=== PATIENT | female | born 1940 | race Caucasian/White ===

== ENCOUNTER 2024-06-13 16:50 | Emergency (ER) | payer OTHER ==
--- NOTE | 2024-06-13 17:34 | RAD REPORT ---
EXAMINATION: CT ABDOMEN AND PELVIS WITHOUT CONTRAST CLINICAL INDICATION: Female, 84 years old.Lower GI bleed;Abd pain TECHNIQUE: CT abdomen and pelvis was performed, without IV contrast, as per department protocol. Axia l, sagittal and coronal reconstructions were obtained. One or more of the following dose reduction techniques were used: Automated exposure control, adjustment of the mA and/or kV according to the pat ient size, and/or iterative reconstruction. Unless otherwise specified, incidental findings do not require dedicated imaging follow-up. [id number]. IV CONTRAST: Not administered. COMPARISON: None FINDINGS: The lack of intravenous contrast limits the sensitivity of this exam for evaluation of solid visceral organs, vascular structures, and retroperitoneum. LOWER CHEST: Small bilateral pleural effusions with probably underlying atelectasis.Moderate cardiome christine. Mild coronary artery calcifications.Moderate hiatal hernia. Aortic valve and mitral annular calcifications. UPPER GI: No significant abnormality. LIVER: No significant focal abnormality. GALLBLADDER/BILE DUCTS: Cholecystectomy. Mild extra-hepatic biliary ductal dilatation is likely relat ed to the post-cholecystectomy state. Consider correlating with LFT's.? PANCREAS: Atrophy but no acute findings. SPLEEN: Unremarkable. ADRENALS: No adrenal masses. KIDNEYS AND URETERS: No hydronephrosis.Limited evaluation for renal lesions in the absence of IV cont rast.No renal calculi. ABDOMINAL AORTA AND OTHER VESSELS: Mild atherosclerotic changes. PERITONEUM: No abnormal free fluid. No free air. LYMPH NODES: No pathologic lymphadenopathy. ABDOMINAL WALL: Small fat containing umbilical hernia. SMALL BOWEL/COLON: Small bowel has normal course and caliber. No colonic wall thickening or pericolon ic inflammatory changes. Moderate diverticulosis without diverticulitis. Moderate formed stool burden. URINARY BLADDER: Underdistended but grossly unremarkable. REPRODUCTIVE ORGANS: No pathologic process. MUSCULOSKELETAL: Lower thoracic and lumbar compression fractures identified. At least 2 of which appe ar subacute including at T11 and L1. The others are probably chronic. ADDITIONAL FINDINGS: None. IMPRESSION: No acute findings within the abdomen or pelvis. Age-indeterminate thoracic and lumbar compression fractures. MRI could better establish acuity if cli nically indicated. Other ancillary findings as noted above.
[2024-06-13 18:17] LABS: Absolute Basophils 0.1 K/uL (0-0.5); Absolute Eosinophils 0.3 K/uL (0-0.5); Absolute Lymphocytes (CBC) 1.3 K/uL (0.7-4.9); Absolute Monocytes 0.9 K/uL (0.1-1.3); Absolute Neutrophil 4.2 K/uL (1.8-8.0); Albumin 2.5 g/dL (3.4-5.0); Albumin/Globulin Ratio 0.7 (1.1-1.8); Anion Gap 9.2 mEq/L (5.0-15.0); Bilirubin Direct 0.2 mg/dL (0-0.2); Bilirubin Indirect, Calculated 0.3 mg/dL (0.2-0.8); Bilirubin Total 0.5 mg/dL (0.2-1.0); Eosinophils % 4.2 % (0-4.4); Globulin 3.7 g/dL (2.3-3.5); Hematocrit 34.8 % (36.0-45.0); Hemoglobin 11.7 g/dL (12.0-15.0); Lymphocytes % 19.5 % (15.3-44.8); MCH 33.4 pg (27.0-35.0); MCHC 33.7 g/dL (32.0-36.0); MCV 99.2 fL (80-100); MPV 7.4 fL (7.6-11.3); Magnesium 2.1 mg/dL (1.6-2.4); Monocytes % 12.8 % (3.3-12.3); Neutrophils % 62.5 % (41.7-73.7); Nucleated Red Blood Cells % 0.1 % (0-0); PT Prothrombin Time 11.5 SECONDS (10-13.0); PTT, Activated Partial Thromb 34.2 SECONDS (27.2-37.4); Platelets 168 thou/uL (152-406); Potassium 3.2 mEq/L (3.5-5.1); Protein, Total 6.2 g/dL (6.4-8.2); Protime INR 1.01; RBC Red Blood Cell Count 3.51 M/uL (3.86-4.86); Red Cell Distribution Width 24.7 % (12.1-15.2); Troponin High Sensitivity 30.5 pg/mL (<58.9)
[2024-06-13 18:18] LABS: Anisocytosis 3+; Blood Morphology Comment NOTED (NOT SEEN); Platelet Estimate ADEQ; White Blood Cell Scan OK (OK)
--- NOTE | 2024-06-13 18:47 | ER ---
Nurse's Notes [facility] Name: Cintia Avitia Age: 84 yrs Sex: Female : 1940 Arrival Date: 06/13/2024 Time: 16:50 Bed 19 [facility] MD: Diagnosis: Rectal bleeding Presentation: 06/13 16:53 Chief complaint: EMS states: has had bloody stool all day, bright red blood, she has hx iw of diverticulitis and hemorrhoids , pt denies abd pain or cramping. 16:53 Coronavirus screen: At this time, the client does not indicate any symptoms associated iw with coronavirus-19. Ebola Screen: No symptoms or risks identified at this time. Initial Sepsis Screen: Does the patient meet any 2 criteria? No. Patient's initial sepsis screen is negative. Does the patient have a suspected source of infection? No. Patient's initial sepsis screen is negative. Risk Assessment: Do you want to hurt yourself or someone else? Patient reports no desire to harm self or others. Onset of symptoms was June 13, 2024. 16:53 Method Of Arrival: EMS: [facility] iw 16:53 Acuity: CHRISTAL 3 iw Historical: - Allergies: 17:01 digoxin; iw 17:01 Epinephrine; iw 17:01 NITROFURAN DERIVATIVES; iw 17:01 Remeron; iw 17:01 Sulfa (Sulfonamide Antibiotics); iw - Home Meds: 17:06 nystatin 100,000 unit/gram Topical powder 2 times per day [Active]; meclizine 12.5 mg iw Oral tablet 2 times per day [Active]; midodrine 10 mg oral tablet 3 times per day [Active]; amiodarone 200 mg oral tablet daily [Active]; pravastatin 40 mg oral tablet every day at bedtime [Active]; metoprolol tartrate 25 mg Oral tablet 2 times per day [Active]; Senna-S 8.6-50 mg oral tablet 2 times per day [Active]; pantoprazole 40 mg oral tablet, delayed release (enteric coated) every morning [Active]; Lokelma 10 gram oral powder in packet daily [Active]; insulin glargine 100 unit/mL Sub-Q solution 10 units daily [Active]; Enulose 10 gram/15 mL oral solution 30 mL 3 times per day [Active]; bisacodyl 10 mg Rectal suppository daily [Active]; diclofenac sodium 1 % topical gel every 8 hours [Active]; - PMHx: 17:01 Hypertensive disorder; Diabetes mellitus; Ileus; back fracture; ESRD; dialysis; iw 17:05 CHF; Atrial fibrillation; iw - PSHx: 17:01 pacemaker; iw - Immunization history:: Adult Immunizations up to date. - Infectious Disease History:: Denies. - Social history:: Smoking status: Patient denies any tobacco usage or history of. Screenin:00 [facility] ED Fall Risk Assessment (Adult) History of falling in the last 3 months, kj2 including since admission No falls in past 3 months (0 pts) Confusion or Disorientation No (0 pts) Intoxicated or Sedated No (0 pts) Impaired Gait No (0 pts) Mobility Assist Device Used No (0 pt) Altered Elimination No (0 pt) Score/Fall Risk Level 0 - 2 = Low Risk Maintained a safe environment, Hourly rounding (assess needs \T\ fall precautionary measures) done. Abuse screen: Denies threats or abuse. Denies injuries from another. Nutritional screening: No deficits noted. Tuberculosis screening: No symptoms or risk factors identified. Assessment: 17:00 General: Appears in no apparent distress. Behavior is calm, cooperative. Pain: Denies kj2 pain. Neuro: Level of Consciousness is awake, alert, obeys commands, Oriented to person, place, time, situation. Cardiovascular: Patient's skin is warm and dry. Respiratory: Airway is patent Respiratory effort is unlabored. GI: No signs and/or symptoms were reported involving the gastrointestinal system. : No signs and/or symptoms were reported regarding the genitourinary system. 17:51 Reassessment: Patient appears in no apparent distress at this time. Patient and/or kj2 family updated on plan of care and expected duration. Pain level reassessed. Patient is alert, oriented x 3, equal unlabored respirations, skin warm/dry/pink. 19:07 Reassessment: Patient appears in no apparent distress at this time. Patient and/or kj2 family updated on plan of care and expected duration. Pain level reassessed. Patient is alert, oriented x 3, equal unlabored respirations, skin warm/dry/pink. 19:10 Reassessment:. kj2 19:53 Reassessment: gave nurse to nurse report to [facility] facility staff nurse, Danie will kj2 call back with an ETA for lease picker transportation of patient. 20:37 Reassessment: Patient appears in no apparent distress at this time. Patient and/or kj2 family updated on plan of care and expected duration. Pain level reassessed. Patient is alert, oriented x 3, equal unlabored respirations, skin warm/dry/pink. 20:37 Reassessment: EMS arrived to transport to facility. kj2 Vital Signs: 16:53 BP 124 / 75; Pulse 57; Resp 16; Temp 97.9; Pulse Ox 94% on R/A; Weight 69.4 kg; Height iw 5 ft. 0 in. ; Pain 0/10; 17:47 BP 133 / 61; Pulse 60; Resp 18; Pulse Ox 95% on R/A; ph 19:09 BP 130 / 62; Pulse 60; Resp 18; Temp 97.9; Pulse Ox 98% on R/A; kj2 16:53 Body Mass Index 29.88 (69.40 kg, 152.4 cm) iw 16:53 Pain Scale: Adult iw ED Course: 16:50 Patient arrived in ED. ty 16:50 Zohaib Blevins MD is Attending Physician. sp3 16:55 Triage completed. jb4 17:00 Patient has correct armband on for positive identification. Bed in low position. Call kj2 light in reach. Provided Education on: call light. 17:04 Arm band placed on. iw 17:22 CT Abd/Pelvis - Without Contrast In Process Unspecified. EDMS 17:45 Funmilayo Lewis, RN is Primary Nurse. kj2 17:50 No provider procedures requiring assistance completed. kj2 17:51 Initial lab(s) drawn, by [facility], sent to lab. T\T\S collected, blood band applied to patient. iw Inserted saline lock: 20 gauge in right antecubital area, using aseptic technique. Blood collected. Flushed with 10 mL NS. 18:16 EKG done, by ED staff, reviewed by Zohaib Blevins MD. zm 19:12 IV discontinued, intact, bleeding controlled, No redness/swelling at site. Pressure kj2 dressing applied. Administered Medications: No medications were administered Medication: 17:50 VIS not applicable for this client. kj2 Outcome: 18:46 Discharge ordered by . sp3 19:11 Discharged to [facility]. Report called to [facility] kj2 19:11 Condition: stable 19:11 Discharge instructions given to patient, Instructed on discharge instructions, follow up and referral plans. Demonstrated understanding of instructions, follow-up care, 21:06 Patient left the ED. kj2 Signatures: Dispatcher [employer] EDJenn Farr RN RN Prema Doan RN RN ph Bryson, James, RN RN [facility] Zohaib Blevins MD MD sp3 Sandy Malone Tylor ty Jordan, Krystal, RN RN kj2 Corrections: (The following items were deleted from the chart) 17: 16:53 Chief complaint: EMS states: has had bloody stool all day, bright red blood, she iw has hx of diverticulitis and hemorrhoids , pt denies abd pain or cramping [facility] 16:53 Coronavirus screen: At this time, the client does not indicate any symptoms iw associated with coronavirus-19. [facility] 16:53 Ebola Screen: No symptoms or risks identified at this time. [facility] 16:53 Risk Assessment: Do you want to hurt yourself or someone else? Patient reports no iw desire to harm self or others. [facility] 16:53 Initial Sepsis Screen: Does the patient meet any 2 criteria? No. Patient's iw initial sepsis screen is negative. Does the patient have a suspected source of infection? No. Patient's initial sepsis screen is negative. [facility] 16:53 Onset of symptoms was June 13, 2024 [facility] 16:53 Method Of Arrival: EMS: [facility] 16:53 Acuity: CHRISTAL 3 [facility] 16:53 BP 124 / 75; Pulse 57bpm; Resp 16bpm; Pulse Ox 94% RA; Temp 97.9F; 69.4 kg; iw Height 5 ft. 0 in.; BMI: 29.8; Pain 0/10, Adult; [facility] 20:39 19:11 Discharged to home via wheelchair, kj2 kj2
--- NOTE | 2024-06-13 18:47 | EDPHYS ---
Physician Documentation [facility] Name: Cintia Avitia Age: 84 yrs Sex: Female : 1940 Arrival Date: 06/13/2024 Time: 16:50 Bed 19 Private MD: ED Physician Zohaib Blevins HPI: 06/13 16:53 This 84 yrs old Female presents to ER via Unassigned with complaints of Rectal Bleeding.sp3 16:53 84-year-old female with history of end-stage renal disease, prior diverticulitis, prior sp3 lower GI bleed, prior hemorrhoids status post 2 surgeries now presents to the ED with recurrent bright red blood mixed with stool over the last 24 hours. Patient is having no pain and denies having any lightheadedness, headache, chest pain, shortness of breath, abdominal pain, vomiting, rash, bleeding anywhere else, or any other signs or symptoms on ROS at this time. Patient is not on any antiplatelet or anticoagulant agents. Last dialysis was today. ROS otherwise negative.. Historical: - Allergies: 17:01 digoxin; iw 17:01 Epinephrine; iw 17:01 NITROFURAN DERIVATIVES; iw 17:01 Remeron; iw 17:01 Sulfa (Sulfonamide Antibiotics); iw - Home Meds: 17:06 nystatin 100,000 unit/gram Topical powder 2 times per day [Active]; meclizine 12.5 mg iw Oral tablet 2 times per day [Active]; midodrine 10 mg oral tablet 3 times per day [Active]; amiodarone 200 mg oral tablet daily [Active]; pravastatin 40 mg oral tablet every day at bedtime [Active]; metoprolol tartrate 25 mg Oral tablet 2 times per day [Active]; Senna-S 8.6-50 mg oral tablet 2 times per day [Active]; pantoprazole 40 mg oral tablet, delayed release (enteric coated) every morning [Active]; Lokelma 10 gram oral powder in packet daily [Active]; insulin glargine 100 unit/mL Sub-Q solution 10 units daily [Active]; Enulose 10 gram/15 mL oral solution 30 mL 3 times per day [Active]; bisacodyl 10 mg Rectal suppository daily [Active]; diclofenac sodium 1 % topical gel every 8 hours [Active]; - PMHx: 17:01 Hypertensive disorder; Diabetes mellitus; Ileus; back fracture; ESRD; dialysis; iw 17:05 CHF; Atrial fibrillation; iw - PSHx: 17:01 pacemaker; iw - Immunization history:: Adult Immunizations up to date. - Infectious Disease History:: Denies. - Social history:: Smoking status: Patient denies any tobacco usage or history of. ROS: 16:54 Constitutional: Negative for fever, chills, and weight loss, Eyes: Negative for injury, sp3 pain, redness, and discharge, ENT: Negative for injury, pain, and discharge, Neck: Negative for injury, pain, and swelling, Cardiovascular: Negative for chest pain, palpitations, and edema, Respiratory: Negative for shortness of breath, cough, wheezing, and pleuritic chest pain, Back: Negative for injury and pain, MS/Extremity: Negative for injury and deformity, Skin: Negative for injury, rash, and discoloration, Neuro: Negative for headache, weakness, numbness, tingling, and seizure, Psych: Negative for depression, anxiety, suicide ideation, homicidal ideation, and hallucinations, Allergy/Immunology: Negative for hives, rash, and allergies, Endocrine: Negative for neck swelling, polydipsia, polyuria, polyphagia, and marked weight changes, Hematologic/Lymphatic: Negative for swollen nodes, abnormal bleeding, and unusual bruising, 16:54 All other systems are negative, Exam: 16:54 Constitutional: This is a well developed, well nourished patient who is awake, alert, sp3 and in no acute distress. Head/Face: Normocephalic, atraumatic. Eyes: Pupils equal round and reactive to light, extra-ocular motions intact. Lids and lashes normal. Conjunctiva and sclera are non-icteric and not injected. Cornea within normal limits. Periorbital areas with no swelling, redness, or edema. Neck: Trachea midline, no thyromegaly or masses palpated, and no cervical lymphadenopathy. Supple, full range of motion without nuchal rigidity, or vertebral point tenderness. No Meningismus. Chest/axilla: Normal chest wall appearance and motion. Nontender with no deformity. No lesions are appreciated. Cardiovascular: Regular rate and rhythm with a normal S1 and S2. No gallops, murmurs, or rubs. Normal PMI, no JVD. No pulse deficits. Respiratory: Lungs have equal breath sounds bilaterally, clear to auscultation and percussion. No rales, rhonchi or wheezes noted. No increased work of breathing, no retractions or nasal flaring. Abdomen/GI: Soft, non-tender, with normal bowel sounds. No distension or tympany. No guarding or rebound. No evidence of tenderness throughout. Back: No spinal tenderness. No costovertebral tenderness. Full range of motion. Skin: Warm, dry with normal turgor. Normal color with no rashes, no lesions, and no evidence of cellulitis. MS/ Extremity: Pulses equal, no cyanosis. Neurovascular intact. Full, normal range of motion. Neuro: Awake and alert, GCS 15, oriented to person, place, time, and situation. Cranial nerves II-XII grossly intact. Motor strength 5/5 in all extremities. Sensory grossly intact. Cerebellar exam normal. Normal gait. Psych: Awake, alert, with orientation to person, place and time. Behavior, mood, and affect are within normal limits. 16:54 Abdomen/GI: Blood present in undergarments and on sheet., 18:15 ECG was reviewed by the Attending Physician. Paced rhythm at 60 bpm sp3 Vital Signs: 16:53 BP 124 / 75; Pulse 57; Resp 16; Temp 97.9; Pulse Ox 94% on R/A; Weight 69.4 kg; Height iw 5 ft. 0 in. ; Pain 0/10; 17:47 BP 133 / 61; Pulse 60; Resp 18; Pulse Ox 95% on R/A; ph 19:09 BP 130 / 62; Pulse 60; Resp 18; Temp 97.9; Pulse Ox 98% on R/A; kj2 16:53 Body Mass Index 29.88 (69.40 kg, 152.4 cm) iw 16:53 Pain Scale: Adult iw MDM: 16:50 Medical Screening Exam initiated sp3 16:55 Data reviewed: vital signs, nurses notes, old medical records, lab test result(s), EKG, sp3 radiologic studies. ED course: 84-year-old female with PMH above now with lower GI bleed/melena. Differential diagnosis includes diverticulitis, hemorrhoidal bleed, other GI bleed, among others. I am at highly suspicious of coagulopathy or any other critical process including sepsis or shock. Vital signs demonstrate normal blood pressure and normal heart rate. Workup will include CT scan of the abdomen pelvis noncontrast, general labs, EKG and general supportive care with further interventions as indicated. Disposition pending workup and patient course.. 18:45 ED course: Patient resting comfortably with normal vital signs. No active bleeding sp3 noted. Hemoglobin 11.7. CT demonstrates no significant abnormality. Patient is not coagulopathic. We will safely discharge patient home to follow-up with her PCP.. 06/13 16:52 Order name: Basic Metabolic Panel; Complete Time: 18:41 sp3 06/13 16:52 Order name: CBC with Diff; Complete Time: 18:41 sp3 06/13 16:52 Order name: LFT's; Complete Time: 18:41 sp3 06/13 16:52 Order name: Magnesium; Complete Time: 18:41 sp3 06/13 16:52 Order name: NT PRO-BNP; Complete Time: 18:41 3 06/13 16:52 Order name: PT-INR; Complete Time: 18:41 sp3 06/13 16:52 Order name: Troponin HS; Complete Time: 18:41 sp3 06/13 16:52 Order name: Ptt, Activated; Complete Time: 18:41 sp3 06/13 16:52 Order name: Type And Screen; Complete Time: 18:59 sp3 06/13 18:19 Order name: CBC Smear Scan; Complete Time: 18:41 EDMS 06/13 19:00 Order name: ABO/RH no charge; Complete Time: 19:01 EDMS 06/13 16:52 Order name: CT Abd/Pelvis - Without Contrast; Complete Time: 17:36 sp3 06/13 16:52 Order name: Cardiac monitoring; Complete Time: 18:20 sp3 06/13 16:52 Order name: EKG - Nurse/Tech; Complete Time: 18:16 sp3 06/13 16:52 Order name: IV Saline Lock; Complete Time: 17:58 sp3 06/13 16:52 Order name: Labs collected and sent; Complete Time: 17:58 3 06/13 16:52 Order name: O2 Per Protocol; Complete Time: 18:22 sp3 06/13 16:52 Order name: O2 Sat Monitoring; Complete Time: 18:20 sp3 06/13 16:52 Order name: NPO; Complete Time: 17:56 sp3 Administered Medications: No medications were administered Disposition Summary: 06/13/24 18:46 Discharge Ordered Notes: Location: Home sp3 Condition: Stable sp3 Diagnosis - Rectal bleeding sp3 Followup: sp3 - With: Private Physician - When: Upon discharge from the Emergency Department - Reason: Continuance of care Discharge Instructions: - Discharge Summary Sheet sp3 - Rectal Bleeding sp3 Forms: - Medication Reconciliation Form sp3 - Antibiotic Education sp3 - Prescription Opioid Use sp3 - Patient Portal Instructions sp3 - Leadership Thank You Letter sp3 - SBAR form kj2 Signatures: Dispatcher [employer] EDJenn Farr RN RN iw Zohaib Blevins MD MD sp3 Corrections: (The following items were deleted from the chart) 16:52 16:52 BASIC METABOLIC PANEL+C.LAB.BRZ ordered. EDMS EDMS 16:52 16:52 CBC+H.LAB.BRZ ordered. EDMS EDMS 16:52 16:52 HEPATIC FUNCTION+C.LAB.BRZ ordered. EDMS EDMS 16:52 16:52 MAGNESIUM+C.LAB.BRZ ordered. EDMS EDMS 16:52 16:52 PROBNP+C.LAB.BRZ ordered. EDMS EDMS 16:52 16:52 PROTIME (+INR)+COAG.LAB.BRZ ordered. EDMS EDMS 16:52 16:52 Troponin High Sensitivity+C.LAB.BRZ ordered. EDMS EDMS 16:52 16:52 PTT, ACTIVATED+COAG.LAB.BRZ ordered. EDMS EDMS 16:52 16:52 TYPE AND SCREEN+BB.LAB.BRZ ordered. EDMS EDMS 16:53 16:53 Abdomen Pelvis Wo Con+CT.RAD.BRZ ordered. EDMS EDMS
[2024-06-14 01:17] VITALS: TEMP 97.9
[2024-06-14 01:20] VITALS: BP 130/62; O2SAT 98
--- NOTE | 2024-06-18 12:17 | EKG ---
Test Date: 2024-06-13 Test Time: 18:13:50 Grader Marker: SIVA MEASUREMENT RESULTS: Intervals: Rate: 60 GA: 206 QRSD: 164 QT: 580 QTc: 580 Fishers: P: GA: 206 QRS: -71 T: 105 INTERPRETIVE STATEMENTS: AV dual-paced rhythm Abnormal ECG No previous ECG available for comparison Electronically Signed On 06-18-24 12:06:28 CDT by Alfredo Barboza
== END 2024-06-13 21:06 | disposition home or self-care (01) ==
LOC: ER 16:50
DX: K62.5 Hemorrhage of anus and rectum (principal); E11.22 Type 2 diabetes mellitus with diabetic chronic kidney disease; I13.2 Hypertensive heart and chronic kidney disease with heart failure and with stage 5 chronic kidney disease, or end stage renal disease; I50.9 Heart failure, unspecified; N18.6 End stage renal disease; Z99.2 Dependence on renal dialysis; Z95.0 Presence of cardiac pacemaker; Z79.4 Long term (current) use of insulin
CPT/HCPCS: 36415; 74176; 80048; 80076; 83735; 83880; 84484; 85025; 85610; 85730; 86850; 86900; 86901; 93005; 99284

== ENCOUNTER 2024-06-27 20:17 | Inpatient (IN) | payer OTHER ==
--- NOTE | 2024-06-27 20:47 | RAD REPORT ---
EXAM: CT brain without contrast HISTORY: Alteration of consciousness/confusion COMPARISON: None TECHNIQUE: Multiple contiguous axial images were obtained and a CT of the brain without contrast. Sagittal and coronal reformats were performed. Automated exposure control, adjustment of the mA and/or kV according to patient size, and/or itera tive reconstruction. Unless otherwise specified, incidental findings do not require dedicated imaging follow-u FINDINGS: An intracranial bleed is not seen Ventricles are normal caliber No extra-axial fluid collection noted 1 cm low-density left basal ganglia. Complete opacification left mastoids. IMPRESSION: Low-density left basal ganglia probably lacunar infarction. The age is indeterminate. MRI may be help ful for further evaluation if clinically indicated. Complete opacification left mastoids may indicate mastoiditis. from the emergency room was notified at 8:42 PM June 27, 2024
--- NOTE | 2024-06-27 20:54 | RAD REPORT ---
EXAMINATION: CTA HEAD CLINICAL INDICATION: Alteration of consciousness/confusion TECHNIQUE: Axial CT images were obtained through the head after 100 cc Isovue-370 intravenous contras t utilizing angiographic protocol with 3D post-processing (maximum intensity projection images, volume rendered images and/or shaded surface rendered images). One or more of the following dose red uction techniques were used: Automated exposure control, adjustment of the mA and/or kV according to patient size, and/or iterative reconstruction. Unless otherwise specified, incidental findings do not require dedicated imaging follow-up. COMPARISON: None FINDINGS: Mild calcified plaque distal internal carotid arteries ,The basilar anterior cerebral, middle cerebral and posterior cerebral arteries do not demonstrate a significant stenosis An aneurysm not noted. No large vessel occlusion IMPRESSION: No acute vascular abnormality displayed
--- NOTE | 2024-06-27 20:56 | RAD REPORT ---
EXAMINATION: Neck Angio CLINICAL INDICATION: Alteration of consciousness/confusion. Neck pain TECHNIQUE: Axial CT images were obtained from the aortic arch to the skull base after intravenous adm inistration of 100 cc Isovue-370 utilizing angiographic protocol. Multiplanar reformats, as well as 3D post-processing (maximum intensity projection images, volume rendered images and/or shaded surface rendered images) were generated and reviewed. One or more of the following dose reduction techniques were used: Automated exposure control, adjustment of the mA and/or kV according to patient size, and/or iterative reconstruction. Unless otherwise specified, incidental findings do not require dedicated imaging follow-up. COMPARISON: No prior exam. FINDINGS: The visualized aortic arch and great vessels do not demonstrate a significant abnormality Mild plaque within the common carotid, internal carotid and external carotid arteries bilaterally. Distal right vertebral artery hypoplastic. Vertebral arteries unremarkable No significant stenosis noted. A dissection is not seen. Moderate right and [id number] left pleural effusions Methods for NASCET criteria: Mild stenosis, 0% to 49%; Moderate stenosis 50% to 69%; Severe stenosis, 70% to 99% IMPRESSION: No acute vascular abnormality displayed
[2024-06-27 20:59] LABS: Absolute Basophils 0.1 K/uL (0-0.5); Absolute Eosinophils 0.2 K/uL (0-0.5); Absolute Lymphocytes (CBC) 1.1 K/uL (0.7-4.9); Absolute Monocytes 0.8 K/uL (0.1-1.3); Basophils % 1.1 % (0-1.3); Eosinophils % 3.8 % (0-4.4); Hematocrit 32.8 % (36.0-45.0); Hemoglobin 11.2 g/dL (12.0-15.0); Lymphocytes % 21.3 % (15.3-44.8); MCH 33.8 pg (27.0-35.0); MCV 99.6 fL (80-100); MPV 8.6 fL (7.6-11.3); Monocytes % 15.1 % (3.3-12.3); Neutrophils % 58.7 % (41.7-73.7); Nucleated Red Blood Cells % 0.3 % (0-0); Platelets 123 thou/uL (152-406); Red Cell Distribution Width 24.9 % (12.1-15.2)
--- NOTE | 2024-06-27 21:04 | RAD REPORT ---
EXAMINATION: CT ABDOMEN AND PELVIS WITHOUT CONTRAST CLINICAL INDICATION: Abdominal pain TECHNIQUE: CT abdomen and pelvis was performed, as per department protocol. IV contrast and oral was not administered.Axial, sagittal and coronal reconstructions were obtained. One or more of the following dose reduction techniques were used: Automated exposure control, adjustment of the mA and/o r kV according to the patient size, and/or iterative reconstruction. Unless otherwise specified, incidental findings do not require dedicated imaging follow-up. [id number]. COMPARISON: May 2024. FINDINGS: The lack of intravenous and oral contrast limits evaluation of solid organs, vessels and bowel. Moderate right and njawt-nv-niiskpek left pleural effusions. Bibasilar atelectasis Ilfvw-na-uxkqzkhy hiatal hernia.. Pancreatic atrophy is present. Cholecystectomy or graph The liver, spleen, , adrenals and kidneys appear grossly normal Diverticula stem from colon without evidence of diverticulitis. Hysterectomy. No adnexal mass. Compression fractures involve T8, T9, T11, L1 and L2 vertebral bodies. They're unchanged from prior e xam. The T11 vertebral compression fracture is moderate to marked. IMPRESSION: Multiple compression fractures involving thoracic and lumbar vertebral bodies. They're unchanged from the prior exam. I suspect they are combination of subacute and chronic. Moderate right and jzpzg-uu-jwefrgpo left pleural effusions
--- NOTE | 2024-06-27 21:19 | RAD REPORT ---
Procedure: Chest Single View HISTORY: Cough COMPARISON: none FINDINGS: Moderate right and zmknk-vk-jgzxncoh left pleural effusions Mild bilateral pulmonary opacities probably pulmonary edema Cardiomegaly Pacemaker leads in place. Central venous catheter with one limb in the SVC and the other the right at rium.
[2024-06-27 21:27] LABS: PT Prothrombin Time 11.2 SECONDS (10-13.0); PTT, Activated Partial Thromb 36.7 SECONDS (27.2-37.4); Protime INR 0.98
[2024-06-27 21:30] LABS: Albumin 2.5 g/dL (3.4-5.0); Albumin/Globulin Ratio 0.7 (1.1-1.8); Anion Gap 9.1 mEq/L (5.0-15.0); Bilirubin Direct 0.3 mg/dL (0-0.2); Bilirubin Indirect, Calculated 0.2 mg/dL (0.2-0.8); Bilirubin Total 0.5 mg/dL (0.2-1.0); Globulin 3.7 g/dL (2.3-3.5); Magnesium 2.3 mg/dL (1.6-2.4); Potassium 3.1 mEq/L (3.5-5.1); Protein, Total 6.2 g/dL (6.4-8.2); Troponin High Sensitivity 21.9 pg/mL (<58.9)
[2024-06-27 21:53] LABS: White Blood Cell Scan OK (OK)
[2024-06-27 22:01] LABS: Platelet Estimate DECR
[2024-06-27 22:03] LABS: Anisocytosis 3+; Blood Morphology Comment NOTED (NOT SEEN); Poikilocytosis 1+; Polychromasia 1+
[2024-06-27 22:04] LABS: Basophilic Stippling 1+; Burr Cells FEW; Ovalocytes SLIGHT
[2024-06-28] MEDS ORDERED: ASPIRIN EC 325 MG TABLET PO ONE (00:25)
--- NOTE | 2024-06-28 01:09 | ER ---
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 VS normal. Patient also c/o generalized weakness. Blood sugar 124. Patient is coming from [facility]. Coronavirus screen: Client denies travel out of the [place] in the last 14 days. Ebola Screen: No symptoms or risks identified at this time. Initial Sepsis Screen: Does the patient meet any 2 criteria? No. Patient's initial sepsis screen is negative. Does the patient have a suspected source of infection? No. Patient's initial sepsis screen is negative. Risk Assessment: Do you want to hurt yourself or someone else? Patient reports no desire to harm self or others. Onset of symptoms was June 27, 2024. 20:19 Method Of Arrival: EMS: [facility] jr13 20:19 Acuity: CHRISTAL 3 jr13 Triage Assessment: 21:12 General: Appears in no apparent distress. comfortable, Behavior is calm, cooperative, jr13 appropriate for age. Pain: Denies pain. Neuro: No deficits noted. Level of Consciousness is Oriented to Legal Support Manager are Speech Pupils are PERRLA, Pupil Size: 3 Intact Reports weakness in Generalized malaise since Yesterday. 21:25 Cardiovascular: Denies chest pain, Capillary refill < 3 seconds Patient's skin is warm jr13 and dry. Rhythm is Respiratory: Airway is patent Respiratory effort is even, unlabored, Respiratory pattern is regular, symmetrical. GI: Abdomen is round non-distended, obese. : No signs and/or symptoms were reported regarding the genitourinary system. Derm: Skin is normal. Musculoskeletal: No deficits noted. Circulation, motion, and sensation intact. Historical: - Allergies: 20:23 Digoxin; jr13 20:23 Epinephrine; jr13 20:23 NITROFURAN DERIVATIVES; jr13 20:23 Sulfa (Sulfonamide Antibiotics); jr13 20:23 Remeron; jr13 - PMHx: 20:23 Atrial fibrillation; back fracture; CHF; diabetes mellitus; Dialysis; ESRD; jr13 Hypertensive disorder; ileus; - PSHx: 20:23 pacemaker; jr13 - Immunization history:: Adult Immunizations up to date, . - Infectious Disease History:: Denies. - Family history:: not pertinent. - Social history:: Smoking status: unknown. Screenin:17 [facility] ED Fall Risk Assessment (Adult) History of falling in the last 3 months, jr13 including since admission Yes- single mechanical fall (1 pt) Confusion or Disorientation No (0 pts) Intoxicated or Sedated No (0 pts) Impaired Gait Yes (1 pt) Mobility Assist Device Used Yes (1 pt) Altered Elimination No (0 pt) Score/Fall Risk Level 3 or more points = High Risk Oriented to surroundings, Maintained a safe environment, Educated pt \T\ family on fall prevention, incl call for assistance when getting out of bed, Implemented a Fall Risk Plan of Care. Abuse screen: Denies threats or abuse. Denies injuries from another. Nutritional screening: No deficits noted. Tuberculosis screening: No symptoms or risk factors identified. Assessment: 20:17 General: See triage assessment. jr13 21:12 Reassessment: Patient and/or family updated on plan of care and expected duration. Pain jr13 level reassessed. Patient is alert, oriented x 3, equal unlabored respirations, skin warm/dry/pink. 22:00 Reassessment: Patient and/or family updated on plan of care and expected duration. Pain jr13 level reassessed. Patient is alert, oriented x 3, equal unlabored respirations, skin warm/dry/pink. 23:00 Reassessment: Patient and/or family updated on plan of care and expected duration. Pain jr13 level reassessed. Patient is alert, oriented x 3, equal unlabored respirations, skin warm/dry/pink. 23:32 General: Son Mr. Avitia can be reached at [phone]. ha1 06/28 00:40 Reassessment: Patient and/or family updated on plan of care and expected duration. Pain ha1 level reassessed. Patient is alert, oriented x 3, equal unlabored respirations, skin warm/dry/pink. Vital Signs: 06/27 20:19 BP 110 / 71; Pulse 59; Resp 17; Temp 97(A); Pulse Ox 100% on 2 lpm NC; Weight 63.5 kg; jr13 Height 5 ft. 2 in. ; 21:12 BP 108 / 52; Pulse 68; Resp 17; Pulse Ox 100% on 2 lpm NC; jr13 22:00 BP 101 / 48; Pulse 60; Resp 16; Pulse Ox 100% on 2 lpm NC; jr13 23:00 BP 101 / 50; Pulse 67; Resp 17; Pulse Ox 100% on 2 lpm NC; jr13 23:45 BP 101 / 50; Pulse 66; Resp 16 S; Pulse Ox 99% on 2 lpm NC; ha1 06/28 00:15 BP 108 / 54; Pulse 60; Resp 16 S; Pulse Ox 100% on R/A; ha1 01:15 BP 101 / 52; Pulse 61; Resp 17; Pulse Ox 100% on 2 lpm NC; ha1 06/27 20:19 Body Mass Index 25.61 (63.50 kg, 157.48 cm) jr13 NIH Stroke Scale Scores: 06/27 21:12 NIHSS Score: 0 jr13 ED Course: 20:17 Arm band placed on right wrist. jr13 20:17 Patient has correct armband on for positive identification. Placed in gown. Bed in low jr13 position. Call light in reach. Side rails up X2. 20:17 Provided Education on: Plan of care. jr13 20:18 Patient arrived in ED. rv1 20:18 Tanmay Robles MD is Attending Physician. rt 20:19 Briseida Villasenor, RN is Primary Nurse. jr13 20:23 Triage completed. jr13 20:25 Sam Avitia, son, would like updates. [phone]. rv1 20:30 No provider procedures requiring assistance completed. Inserted saline lock: 22 gauge jr13 in right antecubital area, using aseptic technique. Blood collected. Flushed with 10 mL NS. 20:35 CT Stroke Brain w/o Contrast In Process Unspecified. EDMS 20:48 CT Head Angio In Process Unspecified. EDMS 20:48 CT Neck Angio In Process Unspecified. EDMS 20:48 CT Abd/Pelvis - Without Contrast In Process Unspecified. EDMS 21:01 EKG done, by ED staff, reviewed by Tanmay Robles MD. jr13 21:08 Stroke CXR 1 View In Process Unspecified. EDMS 0403 01:08 Rachel Caraballo MD is Hospitalizing Provider. rt 01:30 Patient admitted, IV remains in place. ha1 Administered Medications: 00:40 Drug: Aspirin PO 325 mg PO once Route: PO; ha1 01:00 Follow up: Response: No adverse reaction ha1 Medication: 06/27 21:47 VIS not applicable for this client. jr13 Outcome: 06/28 01:09 Decision to Hospitalize by Provider. rt 01:30 Condition: stable ha1 01:30 Admitted to ER Hold. Please see [facility] for further documentation. ha1 01:30 Instructed on the need for admit, 12:54 Patient left the ED. ll1 NIH Stroke Scale - NIH Stroke Score Date: 06/27/2024 Time: 21:12 Total Score = 0 10. Dysarthria (speech clarity - read or repeat words) - 0(Normal) 11. Extinction and Inattention (visual/tactile/auditory/spatial/personal) - 0(No abnormality) 1a. Level of Consciousness (LOC) - 0(Alert) 1b. Level of Consciousness (LOC) (Month \T\ Age) - 0(Both) 1c. LOC Commands (Open \T\ Closes Eyes/Trim Installer) - 0(Both) 2. Best Gaze (Lateral Gaze Paresis) - 0(Normal) 3. Visual Field Loss - 0(No visual loss) 4. Facial Palsy - 0(Normal) 5a. Left Arm: Motor (10-second hold) - 0(No drift) 5b. Right Arm: Motor (10-second hold) - 0(No drift) 6a. Left Leg: Motor (5-second hold - always test supine) - 0(No drift) 6b. Right Leg: Motor (5-second hold - always test supine) - 0(No drift) 7. Limb Ataxia (finger/nose \T\ heel/arellano - test with eyes open) - 0(Absent) 8. Sensory Loss (pinprick arms/legs/face) - 0(Normal) 9. Best Language: Aphasia (description/naming/reading) - 0(No aphasia) Initials: jr13 Signatures: Dispatcher [employer] [facility] Carir Walker RN RN 1 Chhaya Wilson RN RN 1 Tanmay Robles MD MD rt Domi Flaherty rv1 Briseida Villasenor, RN RN jr13 Corrections: (The following items were deleted from the chart) 06/27 21:27 21:12 Neuro: No deficits noted. Level of Consciousness is Oriented to Legal Support Manager are jr13 Speech Pupils are PERRLA, Pupil Size: 3 Intact Reports weakness in Generalized malaise since Yesterday jr13 21:43 21:42 General: See triage assessment. jr13 jr13 21:44 21:10 Reassessment: Patient and/or family updated on plan of care and expected jr13 duration. Pain level reassessed. Patient is alert, oriented x 3, equal unlabored respirations, skin warm/dry/pink. jr13
--- NOTE | 2024-06-28 01:09 | EDPHYS ---
Physician Documentation [facility] Name: Cintia Avitia Age: 84 yrs Sex: Female : 1940 Arrival Date: 06/27/2024 Time: 20:17 Bed 14 Private MD: ED Physician Tanmay Robles HPI: 06/27 20:27 This 84 yrs old Female presents to ER via EMS with complaints of Altered Mental Status. rt 20:27 Patient with history of ESRD presents to the ED with reported altered mental status at rt usp. EMS estimates that it was about 5:00, ever, they cannot down exactly last seen normal. States that they ran the patient before, she is significantly withdrawn compared to previous. She is able to state that she feels weak and has been having abdominal pain and constipation. Denies other specific symptoms at this time, symptoms are moderate in severity, no other aggravating or alleviating factors.. Historical: - Allergies: 20:23 Digoxin; jr13 20:23 Epinephrine; jr13 20:23 NITROFURAN DERIVATIVES; jr13 20:23 Sulfa (Sulfonamide Antibiotics); jr13 20:23 Remeron; jr13 - PMHx: 20:23 Atrial fibrillation; back fracture; CHF; diabetes mellitus; Dialysis; ESRD; jr13 Hypertensive disorder; ileus; - PSHx: 20:23 pacemaker; jr13 - Immunization history:: Adult Immunizations up to date, . - Infectious Disease History:: Denies. - Family history:: not pertinent. - Social history:: Smoking status: unknown. ROS: 20:27 Cardiovascular: Negative for chest pain, palpitations, and edema, Respiratory: Negative rt for shortness of breath, cough, wheezing, and pleuritic chest pain, MS/Extremity: Negative for injury and deformity, Skin: Negative for injury, rash, and discoloration, 20:27 Abdomen/GI: Positive for abdominal pain, constipation, 20:27 Neuro: Positive for altered mental status, weakness, Exam: 20:27 Constitutional: This is a well developed, well nourished patient who is awake, alert, rt and in no acute distress. Chest/axilla: Normal chest wall appearance and motion. Nontender with no deformity. No lesions are appreciated. Cardiovascular: Regular rate and rhythm with a normal S1 and S2. No gallops, murmurs, or rubs. Normal PMI, no JVD. No pulse deficits. Respiratory: Lungs have equal breath sounds bilaterally, clear to auscultation and percussion. No rales, rhonchi or wheezes noted. No increased work of breathing, no retractions or nasal flaring. Skin: Warm, dry with normal turgor. Normal color with no rashes, no lesions, and no evidence of cellulitis. 20:27 Eyes: Extraocular muscles intact, no visual field deficits. 20:27 ENT: Dry mucous membranes. 20:27 Abdomen/GI: Mild tenderness diffusely without, distention, 20:27 Neuro: No aphasia or dysarthria noted, follows commands appropriately. Strength, sensation intact upper lower extremities, no cranial nerve deficits, 22:00 ECG was reviewed by the Attending Physician. rt Vital Signs: 20:19 BP 110 / 71; Pulse 59; Resp 17; Temp 97(A); Pulse Ox 100% on 2 lpm NC; Weight 63.5 kg; [facility] Height 5 ft. 2 in. ; 21:12 BP 108 / 52; Pulse 68; Resp 17; Pulse Ox 100% on 2 lpm NC; [facility] 22:00 BP 101 / 48; Pulse 60; Resp 16; Pulse Ox 100% on 2 lpm NC; [facility] 23:00 BP 101 / 50; Pulse 67; Resp 17; Pulse Ox 100% on 2 lpm NC; [facility] 23:45 BP 101 / 50; Pulse 66; Resp 16 S; Pulse Ox 99% on 2 lpm NC; 1 06/28 00:15 BP 108 / 54; Pulse 60; Resp 16 S; Pulse Ox 100% on R/A; ha1 01:15 BP 101 / 52; Pulse 61; Resp 17; Pulse Ox 100% on 2 lpm NC; ha1 06/27 20:19 Body Mass Index 25.61 (63.50 kg, 157.48 cm) [facility] NIH Stroke Scale Scores: 06/27 21:12 NIHSS Score: 0 [facility] MDM: 20:18 Medical Screening Exam initiated rt 06/28 02:04 Differential Diagnosis: CVA, volume depletion, electrolyte disturbance, dysrhythmia. rt Data reviewed: vital signs, nurses notes, lab test result(s), EKG, radiologic studies. Consideration of Admission/Observation Patient was admitted/placed on observation. Management of patient was discussed with the following: Hospitalist: Agrees to admit. I considered the following discharge prescriptions or medication management in the emergency department Medications were administered in the Emergency Department. See MAR. Independent interpretation of the following test(s) in the Emergency Department CT Scan: My interpretation is No intracranial hemorrhage seen on my interpretation of CT scan images. Care significantly affected by the following chronic conditions: Atrial fibrillation. Counseling: I had a detailed discussion with the patient and/or guardian regarding the historical points, exam findings, and any diagnostic results supporting the discharge/admit diagnosis, lab results, radiology results, the need for further work-up and treatment in the hospital. Response to treatment: the patient's symptoms have mildly improved after treatment. ED course: Difficult to ascertain true last seen normal, therefore, thrombolytics are contraindicated. 06/27 20:19 Order name: Basic Metabolic Panel; Complete Time: 21:34 rt 06/27 20:19 Order name: CBC with Diff; Complete Time: 22:07 rt 06/27 20:19 Order name: Hepatic Function; Complete Time: 21:34 rt 06/27 20:19 Order name: High Sensitivity Troponin; Complete Time: 21:34 rt 06/27 20:19 Order name: Magnesium; Complete Time: 21:34 rt 06/27 20:19 Order name: Protime (+inr); Complete Time: 21:34 rt 06/27 20:19 Order name: Ptt, Activated; Complete Time: 21:34 rt 06/27 21:00 Order name: Glucose, Ancillary Testing; Complete Time: 21:20 EDMS 06/27 21:53 Order name: CBC Smear Scan; Complete Time: 22:07 EDMS 06/28 01:46 Order name: Lactate w/ 2H reflex if indic. EDMS 06/28 01:46 Order name: Magnesium EDMS 06/28 01:46 Order name: Thyroid Stimulating Hormone EDMS 06/28 01:46 Order name: Urinalysis w/ reflexes EDMS 06/28 01:46 Order name: CBC with Automated Diff EDMS 06/28 01:47 Order name: CBC with Automated Diff EDMS 06/28 01:47 Order name: Comprehensive Metabolic Panel EDMS 06/28 01:47 Order name: Comprehensive Metabolic Panel EDMS 06/28 04:42 Order name: Lactate w/ 2H reflex if indic. EDMS 06/28 04:42 Order name: CBC with Automated Diff EDMS 06/28 12:34 Order name: Uric Acid EDMS 06/28 12:34 Order name: NT PRO-BNP EDMS 06/27 20:19 Order name: CT Head Angio; Complete Time: 21:20 rt 06/27 20:19 Order name: CT Neck Angio; Complete Time: 21:20 rt 06/27 20:19 Order name: CT Stroke Brain w/o Contrast; Complete Time: 21:20 rt 06/27 20:19 Order name: Stroke CXR 1 View; Complete Time: 21:20 rt 06/27 20:19 Order name: CT Abd/Pelvis - Without Contrast; Complete Time: 21:20 rt 06/28 01:46 Order name: CONS Physician Consult EDMS 06/27 20:19 Order name: Accucheck; Complete Time: 21:06 rt 06/27 20:19 Order name: Cardiac monitoring; Complete Time: 21:06 rt 06/27 20:19 Order name: EKG - Nurse/Tech; Complete Time: 21:06 rt 06/27 20:19 Order name: IV Saline Lock; Complete Time: 21:06 rt 06/27 20:19 Order name: Labs collected and sent; Complete Time: 21:06 rt 06/27 20:19 Order name: NPO; Complete Time: 21:06 rt 06/27 20:19 Order name: O2 Per Protocol; Complete Time: 21:06 rt 06/27 20:19 Order name: O2 Sat Monitoring; Complete Time: 21:06 rt 06/27 20:19 Order name: Stroke Swallow Screen; Complete Time: 21:29 rt EC/02 22:00 Rate is 64 beats/min. Rhythm is regular, Paced with Occasional PVCs. QRS Collins is rt Normal. OH interval is normal. No Q waves. 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 Dysarthria (speech clarity - read or repeat words) - 0(Normal) 11. Extinction and Inattention (visual/tactile/auditory/spatial/personal) - 0(No abnormality) 1a. Level of Consciousness (LOC) - 0(Alert) 1b. Level of Consciousness (LOC) (Month \T\ Age) - 0(Both) 1c. LOC Commands (Open \T\ Closes Eyes/Tmd Teacher) - 0(Both) 2. Best Gaze (Lateral Gaze Paresis) - 0(Normal) 3. Visual Field Loss - 0(No visual loss) 4. Facial Palsy - 0(Normal) 5a. Left Arm: Motor (10-second hold) - 0(No drift) 5b. Right Arm: Motor (10-second hold) - 0(No drift) 6a. Left Leg: Motor (5-second hold - always test supine) - 0(No drift) 6b. Right Leg: Motor (5-second hold - always test supine) - 0(No drift) 7. Limb Ataxia (finger/nose \T\ heel/arellano - test with eyes open) - 0(Absent) 8. Sensory Loss (pinprick arms/legs/face) - 0(Normal) 9. Best Language: Aphasia (description/naming/reading) - 0(No aphasia) Initials: jr13 Signatures: Dispatcher [employer] [facility] Chhaya Wilson RN RN ha1 Tanmay Robles MD MD rt Domi Flaherty rv1 Kalyn Wang bc6 Briseida Villasenor RN RN jr13 Corrections: (The following items were deleted from the chart) 06/27 20:20 20:20 Head Angio+CT.RAD.BRZ ordered. EDMS EDMS 20:20 20:20 Neck Angio+CT.RAD.BRZ ordered. EDMS EDMS 20:20 20:20 CT-STROKE BRAIN W/O CONTRAST+CT.RAD.BRZ ordered. EDMS EDMS 20:20 20:20 Chest Single View+RAD.RAD.BRZ ordered. EDMS EDMS 20:20 20:20 Abdomen Pelvis Wo Con+CT.RAD.BRZ ordered. EDMS EDMS 06/28 01:20 01:09 Telemetry/MedSurg (observation) rt rv1 01:20 01:09 rt rv1 03:43 03:43 BLOOD CULTURE*+BA.LAB.BRZ ordered. EDMS EDMS 12:02 01:20 [facility] ER HOLD rv1 bc6 12:02 01:20 ERHOLD- rv1 bc6
[2024-06-28] MEDS ORDERED: ONDANSETRON 4 MG/2 ML VIAL IV PRN (01:40)
--- NOTE | 2024-06-28 01:51 | P.HP ---
Patient History Date of Service: 06/28/24 Reason for admission: Acute metabolic encephalopathy History of Present Illness: 84-year-old female with a past medical history of ESRD, CHF, diabetes, compression fracture, atrial fibrillation presenting with altered mental status from her nursing earlier today. She is arousable and is able to answer questions on my exam. She states her stomach was hurting earlier. She states she felt better after she had 2 laxatives. She denies fevers and chills. In addition she fractured her back several months ago. She denies any acute complaints at this time. Review of Systems 10-point ROS is otherwise unremarkable General: As per HPI Physical Examination - Physical Exam General: Alert, In no apparent distress HEENT: Atraumatic, Normocephalic Neck: Supple Respiratory: Clear to auscultation bilaterally Cardiovascular: Other (Central line /pacemaker), Edema Capillary refill: <2 Seconds Gastrointestinal: Normal bowel sounds Musculoskeletal: No clubbing Integumentary: No rashes Lymphatics: No axilla or inguinal lymphadenopathy - Studies Laboratory Data (last 24 hrs) 06/27/24 06/27/24 06/27/24 20:44 20:44 20:44 WBC 5.10 Hgb 11.2 L Hct 32.8 L Plt Count 123 L PT 11.2 INR 0.98 APTT 36.7 Sodium 137 Potassium 3.1 L BUN 16 Creatinine 2.57 H Glucose 137 H Magnesium 2.3 Total Bilirubin 0.5 AST 26 ALT 22 Alkaline Phosphatase 154 H Assessment and Plan - Plan Acute metabolic encephalopathy Cerebral infarction CHF ESRD Diabetes melitis Hypertension Atrial fibrillation Thrombocytopenia Hypokalemia Dosed with aspirin in the ED Imaging reviewed, basal ganglia infarct age undetermined PT/OT/speech therapy consult in the a.m. Procalcitonin pending Replace potassium Consult nephrology for dialysis Obtain TSH, urinalysis, lactic acid DVT prophylaxis with SCDs - Advance Directives Does patient have a Living Will: No Does patient have a Durable POA for Healthcare: No
[2024-06-28] MEDS ORDERED: NA CHLORIDE 0.9% 1,000 ML ONE ×2 (02:39→07:40)
[2024-06-28] MEDS: NA CHLORIDE 0.9% 1,000 ML IV SCH (03:35)
[2024-06-28 04:35] LABS: Absolute Basophils 0.1 K/uL (0-0.5); Absolute Eosinophils 0.2 K/uL (0-0.5); Absolute Lymphocytes (CBC) 1.1 K/uL (0.7-4.9); Absolute Monocytes 0.9 K/uL (0.1-1.3); Absolute Neutrophil 2.8 K/uL (1.8-8.0); Basophils % 1.1 % (0-1.3); Eosinophils % 3.4 % (0-4.4); Hematocrit 30.5 % (36.0-45.0); Hemoglobin 10.3 g/dL (12.0-15.0); Lymphocytes % 22.7 % (15.3-44.8); MCHC 33.7 g/dL (32.0-36.0); MCV 100.8 fL (80-100); MPV 8.8 fL (7.6-11.3); Monocytes % 16.8 % (3.3-12.3); Nucleated Red Blood Cells % 0.3 % (0-0); Platelets 114 thou/uL (152-406); RBC Red Blood Cell Count 3.03 M/uL (3.86-4.86)
[2024-06-28 04:42] LABS: Red Cell Distribution Width 25.1 % (12.1-15.2)
[2024-06-28 04:49] LABS: Magnesium 2.1 mg/dL (1.6-2.4); Thyroid Stimulating Hormone 0.878 uIU/mL (0.358-3.740)
[2024-06-28] MEDS: CEFTRIAXONE 1,000 MG in NA CHLORIDE 0.9% 50 ML IVPB SCH (05:39)
[2024-06-28] MEDS ORDERED: ALBUMIN HUMAN 25% 100 ML IV ONE (05:46)
[2024-06-28] MEDS ORDERED: CEFTRIAXONE 1000 MG/VIAL ONE ×2 (05:46→09:57)
[2024-06-28] MEDS: ALBUMIN HUMAN 25% 100 ML IV ONE (06:00)
[2024-06-28] MEDS ORDERED: NOREPINEPHRINE BITARTRATE/D5W 4 MG/250 ML BAG IV ONE (06:42)
[2024-06-28] MEDS: NOREPINEPHRINE 4 MG in D5W 250 ML IV SCH (06:45)
[2024-06-28] MEDS ORDERED: NA CHLORIDE 0.9% 50 ML ONE (09:58)
--- NOTE | 2024-06-28 10:25 | P.CNS ---
Date of Consult: 06/28/24 Reason for Consult: ESRD Requesting Physician: pérez cabrera Chief Complaint: Acute metabolic encephalopathy History of Present Illness: 84-year-old female with a past medical history of ESRD, CHF, diabetes, compression fracture, atrial fibrillation presenting with altered mental status from her nursing earlier today. She is arousable and is able to answer questions on my exam. She states her stomach was hurting earlier. She states she felt better after she had 2 laxatives. She denies fevers and chills. In addition she fractured her back several months ago. She denies any acute complaints at this time. 20:27 This 84 yrs old Female presents to ER via EMS with complaints of Altered Mental Status. rt 20:27 Patient with history of ESRD presents to the ED with reported altered mental status at [facility]. EMS estimates that it was about 5:00, ever, they cannot down exactly last seen normal. States that they ran the patient before, she is significantly withdrawn compared to previous. She is able to state that she feels weak and has been having abdominal pain and constipation. Denies other specific symptoms at this time, symptoms are moderate in severity, no other aggravating or alleviating factors.. Allergies digoxin Allergy (Verified 06/28/24 03:49) Hives epinephrine Allergy (Verified 06/28/24 03:49) Shortness of breath Nitrofuran Analogues Allergy (Verified 06/28/24 03:49) Hives/Rash Sulfa (Sulfonamide Antibiotics) Allergy (Verified 06/28/24 03:49) Hives/Rash Home medications list reviewed: Yes Home Medications: Acetaminophen [Pain Relief] 500 mg PO BID PRN 06/28/24 Calcium Carbonate 1,000 mg PO TID 06/28/24 Cyclobenzaprine HCl 5 mg PO BID 06/28/24 Diclofenac Epolamine [Flector] 1 each TD TID 06/28/24 Lactulose [Enulose] 30 ml PO TID 06/28/24 Metoprolol Tartrate 12.5 mg PO BID 06/28/24 Midodrine HCl 10 mg PO TID 06/28/24 Pravastatin Sodium 40 mg PO BEDTIME 06/28/24 - Past Medical/Surgical History -: Hx SHANNON/ ESRD on HD -: CHF -: HLD -: Hypotension -: Tunneled CVC Review of Systems 10-point ROS is otherwise unremarkable General: Weakness, Malaise Neurological: Confusion Physical Examination Temp Pulse Resp BP Pulse Ox 98 F 62 16 109/60 96 06/28/24 09:15 06/28/24 09:15 06/28/24 09:15 06/28/24 09:15 06/28/24 09:15 General: Cooperative, Mild distress HEENT: Atraumatic Neck: Supple Respiratory: Normal air movement, Diminished Cardiovascular: Regular rate/rhythm, Edema (Hip) Gastrointestinal: Soft and benign, Non-distended, Tenderness Musculoskeletal: No clubbing, No contractures Integumentary: No rashes Neurological: Normal speech Laboratory Data (last 24 hrs) 06/27/24 06/27/24 06/27/24 20:44 20:44 20:44 WBC 5.10 Hgb 11.2 L Hct 32.8 L Plt Count 123 L PT 11.2 INR 0.98 APTT 36.7 Sodium 137 Potassium 3.1 L BUN 16 Creatinine 2.57 H Glucose 137 H Magnesium 2.3 Total Bilirubin 0.5 AST 26 ALT 22 Alkaline Phosphatase 154 H Imagings Data: Procedure: Chest Single View HISTORY: Cough COMPARISON: none FINDINGS: Moderate right and pfgew-ke-cbwmigtf left pleural effusions Mild bilateral pulmonary opacities probably pulmonary edema Cardiomegaly Pacemaker leads in place. Central venous catheter with one limb in the SVC and the other the right atrium. EXAMINATION: CT ABDOMEN AND PELVIS WITHOUT CONTRAST CLINICAL INDICATION: Abdominal pain TECHNIQUE: CT abdomen and pelvis was performed, as per department protocol. IV contrast and oral was not administered.Axial, sagittal and coronal reconstructions were obtained. One or more of the following dose reduction techniques were used: Automated exposure control, adjustment of the mA and/or kV according to the patient size, and/or iterative reconstruction. Unless otherwise specified, incidental findings do not require dedicated imaging follow-up. [id number]. COMPARISON: May 2024. FINDINGS: The lack of intravenous and oral contrast limits evaluation of solid organs, vessels and bowel. Moderate right and sqczd-cc-lxalgmxb left pleural effusions. Bibasilar atelectasis Stoef-qx-dbywpwlr hiatal hernia.. Pancreatic atrophy is present. Cholecystectomy or graph The liver, spleen, , adrenals and kidneys appear grossly normal Diverticula stem from colon without evidence of diverticulitis. Hysterectomy. No adnexal mass. Compression fractures involve T8, T9, T11, L1 and L2 vertebral bodies. They're unchanged from prior exam. The T11 vertebral compression fracture is moderate to marked. IMPRESSION: Multiple compression fractures involving thoracic and lumbar vertebral bodies. They're unchanged from the prior exam. I suspect they are combination of subacute and chronic. Moderate right and clxqs-kt-cknluoby left pleural effusions Conclusions/Impression: ESRD on HD -No NSAIDs -HD held today due to hypotension; will reassess HD as needed Hypokalemia -Replete as ordered Acute on Chronic Hypotension -Restart Midodrine -Continue Levophed and wean as tolerated Diastolic CHF, chronic -Daily weight -Hold IVF at this time DM II -RISS prn Hypoalbuminemia -Albumin IV as ordered Acute Metabolic Encephalopathy -Continue supportive care Case reviewed with Dr. Carbera Thank you kindly for the consultation Patient care 40min
[2024-06-28 12:34] LABS: Uric Acid 2.4 mg/dL (2.6-6.0)
--- NOTE | 2024-06-28 16:30 | P.PN ---
Subjective Date of Service: 06/28/24 Chief Complaint: Acute metabolic encephalopathy Physical Examination - Vital Signs Temperature: 98 F Blood Pressure: 111/51 Pulse: 60 Respirations: 20 Pulse Ox (%): 95 - Studies Laboratory Data (last 24 hrs) 06/28/24 06/28/24 06/28/24 03:50 03:50 03:50 WBC 5.10 Hgb 10.3 L D Hct 30.5 L Plt Count 114 L PT INR APTT Sodium Potassium BUN Creatinine Glucose Uric Acid 2.4 L Magnesium 2.1 Total Bilirubin AST ALT Alkaline Phosphatase 06/27/24 06/27/24 06/27/24 20:44 20:44 20:44 WBC 5.10 Hgb 11.2 L Hct 32.8 L Plt Count 123 L PT 11.2 INR 0.98 APTT 36.7 Sodium 137 Potassium 3.1 L BUN 16 Creatinine 2.57 H Glucose 137 H Uric Acid Magnesium 2.3 Total Bilirubin 0.5 AST 26 ALT 22 Alkaline Phosphatase 154 H Assessment And Plan - Plan Physical examination General: Alert and oriented x 2, NAD, HEENT: Conjunctiva not pale, anicteric sclera Neck: Supple, no elevated JVD Heart: Heart sounds 1 and 2 normal, regular rhythm, normal rate, no pedal edema Lungs: Clear to auscultation bilaterally, adequate breath sounds bilaterally, no rhonchi or crackles. Abdomen: Soft, nondistended, nontender, normal bowel sounds. Extremities: No tenderness, no deformity Skin: Normal skin turgor, no rash, no nodules or ulcers, left chest dialysis blood-looks clean no discharge. Neuro: No focal motor deficit. Normal speech. Psychiatry: Normal mood, no agitation. Diagnosis Acute metabolic encephalopathy Cerebral infarction CHF ESRD Diabetes melitis Hypertension Atrial fibrillation Thrombocytopenia Hypokalemia Acute metabolic encephalopathy Altered mental status significantly improved. CT head showing basal ganglia infarct-undetermined age. Continue aspirin Obtain MRI of the brain Check lipid profile PT OT consult Patient with end-stage renal disease on hemodialysis and low BP No response identified bacteremia given altered mental status. IV NS 1 L in the ED. patient's chest x-ray so additionally mild pulm edema and bilateral pleural effusions. Started on Levophed drip in the ED and transferred to the ICU Follow blood cultures. Obtain procalcitonin End-stage renal disease on hemodialysis Dr. Riggs input appreciated. Hemodialysis per nephrology. Chronic atrial fibrillation Hypertension Atrial fibrillation is rate controlled. Hold metoprolol Patient is not on anticoagulation. Diabetes mellitus type 2 Blood sugar readings within normal range. Monitor. DVT prophylaxis with SCDs Advanced directive: Full code.
[2024-06-28] MEDS: VANCOMYCIN 1.5 GM in NA CHLORIDE 0.9% 500 ML IVPB ONE (18:14)
[2024-06-28] MEDS: HYDROCODONE/APAP 5/325 MG TAB PO PRN (20:14)
[2024-06-29 06:05] LABS: Albumin 2.7 g/dL (3.4-5.0); Albumin/Globulin Ratio 0.8 (1.1-1.8); Anion Gap 11.3 mEq/L (5.0-15.0); Bilirubin Total 0.4 mg/dL (0.2-1.0); Globulin 3.6 g/dL (2.3-3.5); Phosphorus 5.1 mg/dL (2.5-4.9); Potassium 3.3 mEq/L (3.5-5.1); Protein, Total 6.3 g/dL (6.4-8.2); Uric Acid 3.2 mg/dL (2.6-6.0)
[2024-06-29 06:27] LABS: Magnesium 2.1 mg/dL (1.6-2.4)
[2024-06-29 06:52] LABS: Hepatitis B Core Ab, Total Nonreactive (Nonreactive); Hepatitis B Surface Ab - Quant 207.02 mIU/mL (<8.0); Hepatitis B surface AG Interp. Nonreactive (Nonreactive)
[2024-06-29 06:53] LABS: HBsAG Nonreactive Report Report
[2024-06-29] MEDS: MIDODRINE HCL 5 MG TABLET PO SCH ×2 (07:00→14:02)
[2024-06-29 07:02] LABS: Absolute Basophils 0.1 K/uL (0-0.5); Absolute Eosinophils 0.2 K/uL (0-0.5); Absolute Lymphocytes (CBC) 0.9 K/uL (0.7-4.9); Absolute Monocytes 1.1 K/uL (0.1-1.3); Absolute Neutrophil 6.4 K/uL (1.8-8.0); Basophils % 0.8 % (0-1.3); Eosinophils % 2.1 % (0-4.4); Hematocrit 31.5 % (36.0-45.0); Hemoglobin 10.6 g/dL (12.0-15.0); Lymphocytes % 10.1 % (15.3-44.8); MCH 34.1 pg (27.0-35.0); MCHC 33.6 g/dL (32.0-36.0); MCV 101.8 fL (80-100); MPV 8.8 fL (7.6-11.3); Monocytes % 12.8 % (3.3-12.3); Neutrophils % 74.2 % (41.7-73.7); Nucleated Red Blood Cells % 0.2 % (0-0); Platelets 120 thou/uL (152-406); Red Cell Distribution Width 24.9 % (12.1-15.2)
[2024-06-29] MEDS ORDERED: Mupirocin NASAL 2 APPL/1 GM TUBE NAS SCH (09:00)
[2024-06-29] MEDS: NA CHLORIDE 0.9% 50 ML ONE (09:04)
--- NOTE | 2024-06-29 12:02 | P.PN ---
Nephrology (S) Remains in the ICU, remains on low dose pressor support, MAP > 70 when seen, lethargic but awakens easily, responds briefly but not fully recovered to baseline. No other acute events or complaints noted (O) Vitals reviewed in the EMR General: Elderly, pale, NAD HEENT: Atraumatic, sclera anicteric, on LFNC Neck: Supple, Lt IJ TDC, exit site c/d Respiratory: Normal air movement, Diminished at bases b/l Cardiovascular: Regular rate/rhythm mostly Gastrointestinal: Soft and benign, Non-distended, NT Musculoskeletal: No contractures, no sig peripheral edema Integumentary: No rashes noted Neurological: Lethargic but awakens easily, responds briefly, no tremors or myclonus noted Laboratory Data (last 24 hrs) Reviewed in the EMR Procedure: Chest Single View HISTORY: Cough COMPARISON: none FINDINGS: Moderate right and fyfea-fa-uuetlfqs left pleural effusions Mild bilateral pulmonary opacities probably pulmonary edema Cardiomegaly Pacemaker leads in place. Central venous catheter with one limb in the SVC and the other the right atrium. EXAMINATION: CT ABDOMEN AND PELVIS WITHOUT CONTRAST CLINICAL INDICATION: Abdominal pain TECHNIQUE: CT abdomen and pelvis was performed, as per department protocol. IV contrast and oral was not administered.Axial, sagittal and coronal reconstructions were obtained. One or more of the following dose reduction techniques were used: Automated exposure control, adjustment of the mA and/or kV according to the patient size, and/or iterative reconstruction. Unless otherwise specified, incidental findings do not require dedicated imaging follow-up. [id number]. COMPARISON: May 2024. FINDINGS: The lack of intravenous and oral contrast limits evaluation of solid organs, vessels and bowel. Moderate right and gdhep-gz-ualkbjye left pleural effusions. Bibasilar atelectasis Eyhds-xi-nojxevei hiatal hernia.. Pancreatic atrophy is present. Cholecystectomy or graph The liver, spleen, , adrenals and kidneys appear grossly normal Diverticula stem from colon without evidence of diverticulitis. Hysterectomy. No adnexal mass. Compression fractures involve T8, T9, T11, L1 and L2 vertebral bodies. They're unchanged from prior exam. The T11 vertebral compression fracture is moderate to marked. IMPRESSION: Multiple compression fractures involving thoracic and lumbar vertebral bodies. They're unchanged from the prior exam. I suspect they are combination of subacute and chronic. Moderate right and dkgjt-gy-pdlsklek left pleural effusions Conclusions/Impression: Dialysis dependent renal failure, ESRD, transferred to our local [facility] unit in early May -Last OP HD Tues, metab profile with missed HD acceptable, will plan for HD tmrw AM Hypotension, unspecified -No clear infectious focus, BCx neg -Wean off low dose pressor support, restart Midodrine, will employ Albumin support with HD tmrw -No further intravascular vol challenge needed currently Diastolic CHF, chronic. Pleural effusions NOS -Monitor closely, UF on HD tmrw as tolerated AMS, unspecified. Possible CVA, possible Lt basal ganglia, unknown duration -Further w/u, management per IM
--- NOTE | 2024-06-29 12:56 | P.PN ---
Subjective Date of Service: 06/29/24 Chief Complaint: Acute metabolic encephalopathy Patient mental status is improved. Blood pressure improved however still soft. No recorded fever. Physical Examination - Vital Signs Temperature: 96.9 F Blood Pressure: 108/56 Pulse: 62 Respirations: 15 Pulse Ox (%): 100 Assessment And Plan - Plan Physical examination General: Alert and oriented x 2, NAD, HEENT: Anicteric sclera Neck: Supple, no elevated JVD Heart: Heart sounds 1 and 2 normal, regular rhythm, normal rate, no pedal edema Lungs: Clear to auscultation bilaterally, adequate breath sounds bilaterally, no rhonchi or crackles. Abdomen: Soft, nondistended, nontender, normal bowel sounds. Extremities: No tenderness, no deformity Skin: Normal skin turgor, no rash, no nodules or ulcers, left chest dialysis blood-looks clean no discharge. Neuro: No focal motor deficit. Normal speech. Psychiatry: Normal mood, no agitation. Diagnosis Acute metabolic encephalopathy Cerebral infarction CHF ESRD Diabetes melitis Hypertension Atrial fibrillation Thrombocytopenia Hypokalemia Acute metabolic encephalopathy Altered mental status significantly improved. CT head showing basal ganglia infarct-undetermined age. Continue aspirin Obtain MRI of the brain Check lipid profile PT OT consult Patient with end-stage renal disease on hemodialysis and low BP No response identified bacteremia given altered mental status. IV NS 1 L in the ED. patient's chest x-ray so additionally mild pulm edema and bilateral pleural effusions. Started on Levophed drip in the ED and transferred to the ICU Follow blood cultures. Obtain procalcitonin End-stage renal disease on hemodialysis Dr. Riggs input appreciated. Hemodialysis per nephrology. Chronic atrial fibrillation Hypertension Atrial fibrillation is rate controlled. Hold metoprolol Patient is not on anticoagulation. Diabetes mellitus type 2 Blood sugar readings within normal range. Monitor. 06/27 MRI of the brain not done because patient has a pacemaker. CT head result concerning for basal ganglia CVA. Neurology consult Neurochecks Blood cultures have yielded no growth-infection/bacteremia is unlikely Patient has a history of soft blood pressure and on midodrine at home. Resume midodrine. Continue to hold metoprolol PT. Nephrology is following for routine hemodialysis. DVT prophylaxis with SCDs Advanced directive: Full code.
--- NOTE | 2024-06-29 13:28 | EKG ---
Test Date: 2024-06-27 Test Time: 21:01:31 Service Center Assistant: XU MEASUREMENT RESULTS: Intervals: Rate: 64 MO: 224 QRSD: 162 QT: 594 QTc: 612 [place]: P: 123 MO: 224 QRS: 269 T: 99 INTERPRETIVE STATEMENTS: AV dual-paced rhythm with prolonged AV conduction with premature ventricular or aberrantly conducted complexes Abnormal ECG Compared to ECG 06/13/2024 18:13:50 Ventricular premature complex(es) now present Electronically Signed On 06-29-24 13:19:51 CDT by Alfredo Barboza
[2024-06-29] MEDS: NOREPINEPHRINE BITARTRATE/D5W 4 MG/250 ML BAG IV SCH (14:01)
[2024-06-29] MEDS ORDERED: VANCOMYCIN 500 MG in NA CHLORIDE 0.9% 250 ML IVPB SCH (17:00)
[2024-06-29] MEDS ORDERED: ALBUMIN HUMAN 25% 100 ML IV SCH (19:00)
[2024-06-30 05:42] LABS: Absolute Basophils 0.1 K/uL (0-0.5); Absolute Eosinophils 0.2 K/uL (0-0.5); Absolute Lymphocytes (CBC) 1.1 K/uL (0.7-4.9); Absolute Monocytes 1.2 K/uL (0.1-1.3); Absolute Neutrophil 6.3 K/uL (1.8-8.0); Basophils % 1.1 % (0-1.3); Eosinophils % 1.8 % (0-4.4); Hematocrit 29.8 % (36.0-45.0); Hemoglobin 10.2 g/dL (12.0-15.0); MCH 34.4 pg (27.0-35.0); MCHC 34.1 g/dL (32.0-36.0); MCV 100.7 fL (80-100); MPV 8.7 fL (7.6-11.3); Monocytes % 13.2 % (3.3-12.3); Neutrophils % 70.9 % (41.7-73.7); Nucleated Red Blood Cells % 0.4 % (0-0); Platelets 122 thou/uL (152-406); RBC Red Blood Cell Count 2.96 M/uL (3.86-4.86); Red Cell Distribution Width 24.7 % (12.1-15.2)
[2024-06-30 06:00] LABS: Albumin 2.7 g/dL (3.4-5.0); Albumin/Globulin Ratio 0.7 (1.1-1.8); Anion Gap 13.3 mEq/L (5.0-15.0); Bilirubin Total 0.4 mg/dL (0.2-1.0); Globulin 3.7 g/dL (2.3-3.5); Magnesium 2.3 mg/dL (1.6-2.4); Phosphorus 5.7 mg/dL (2.5-4.9); Potassium 3.3 mEq/L (3.5-5.1); Protein, Total 6.4 g/dL (6.4-8.2)
[2024-06-30 08:50] LABS: Anisocytosis 3+; Blood Morphology Comment NOTED (NOT SEEN); Macrocytosis 1+; Platelet Estimate DECR; White Blood Cell Scan OK (OK)
[2024-06-30] MEDS: ALBUMIN HUMAN 25% 100 ML IV ONE (09:03)
[2024-06-30] MEDS ORDERED: NOREPINEPHRINE BITARTRATE/D5W 4 MG/250 ML BAG IV SCH (10:04)
--- NOTE | 2024-06-30 10:53 | P.PN ---
Nephrology (S) Remains in the ICU, remains on low dose pressor support. No other acute events or complaints noted. No CP or dyspnea voiced. On LFNC. Discussed plan for HD this AM with pt and Dr. Hernandez (O) Vitals reviewed in the EMR General: Elderly, pale, NAD HEENT: Atraumatic, sclera anicteric, on LFNC Neck: Supple, Lt IJ TDC, exit site c/d Respiratory: Normal air movement, Diminished at bases b/l Cardiovascular: Regular rate/rhythm mostly Gastrointestinal: Soft and benign, Non-distended, NT Musculoskeletal: No contractures, no sig peripheral edema Integumentary: No rashes noted, senile ecchymoses Neurological: Lethargic but awakens easily, responds briefly, no tremors or myclonus noted Laboratory & Imaging Data (last 24 hrs) Reviewed in the EMR Conclusions/Impression: Dialysis dependent renal failure, ESRD, transferred to our local [facility] unit in early May -Last OP HD Tues, metab profile with missed HD still acceptable, will plan for gentle HD this AM, see orders for details Mild hypokalemia -Will dialyze with higher K bath Hypotension, unspecified -No clear infectious focus, BCx neg -Wean off low dose pressor support, pt with widened pulse pressure so will use systolic BP as the target. Did restart Midodrine, will employ Albumin support with HD -No further intravascular vol challenge needed currently Diastolic CHF, chronic. Pleural effusions NOS -Monitor closely, UF as tolerated AMS, unspecified. Possible CVA, possible Lt basal ganglia, unknown duration -Further w/u, management per IM
[2024-06-30] MEDS: NEPRO SHAKE 237 ML CAN PO SCH (11:00)
--- NOTE | 2024-06-30 13:01 | P.PN ---
Subjective Date of Service: 06/30/24 Chief Complaint: Acute metabolic encephalopathy No major changes from yesterday. Patient is oriented x 3 Blood pressure improved. No recorded fever. Physical Examination - Vital Signs Temperature: 97.2 F Blood Pressure: 116/48 Pulse: 60 Respirations: 18 Pulse Ox (%): 97 Assessment And Plan - Plan Physical examination General: Alert and oriented x 2, NAD, HEENT: Anicteric sclera Neck: Supple, no elevated JVD Heart: Heart sounds 1 and 2 normal, regular rhythm, normal rate, no pedal edema Lungs: Clear to auscultation bilaterally, adequate breath sounds bilaterally, no rhonchi or crackles. Abdomen: Soft, nondistended, nontender, normal bowel sounds. Extremities: No tenderness, no deformity Skin: Normal skin turgor, no rash, no nodules or ulcers, left chest dialysis blood-looks clean no discharge. Neuro: No focal motor deficit. Normal speech. Psychiatry: Normal mood, no agitation. Diagnosis Acute metabolic encephalopathy Cerebral infarction CHF ESRD Diabetes melitis Hypertension Atrial fibrillation Thrombocytopenia Hypokalemia Acute metabolic encephalopathy Altered mental status significantly improved. CT head showing basal ganglia infarct-undetermined age. Continue aspirin Obtain MRI of the brain Check lipid profile PT OT consult Patient with end-stage renal disease on hemodialysis and low BP No response identified bacteremia given altered mental status. IV NS 1 L in the ED. patient's chest x-ray so additionally mild pulm edema and bilateral pleural effusions. Started on Levophed drip in the ED and transferred to the ICU Follow blood cultures. Obtain procalcitonin End-stage renal disease on hemodialysis Dr. Riggs input appreciated. Hemodialysis per nephrology. Chronic atrial fibrillation Hypertension Atrial fibrillation is rate controlled. Hold metoprolol Patient is not on anticoagulation. Diabetes mellitus type 2 Blood sugar readings within normal range. Monitor. 06/29 MRI of the brain not done because patient has a pacemaker. CT head result concerning for basal ganglia CVA. Neurology consult Neurochecks Blood cultures have yielded no growth-infection/bacteremia is unlikely Patient has a history of soft blood pressure and on midodrine at home. Resume midodrine. Continue to hold metoprolol PT. Nephrology is following for routine hemodialysis. 06/30 Patient remained on Levophed drip at the low-dose. Blood pressure improved but soft. Nephrology is following Patient planned for hemodialysis today Intermittent albumin infusion for low BP Wean Levophed as tolerated Blood cultures have yielded no growth Aspirin and Plavix Continue midodrine. Metoprolol is on hold. A-fib is rate controlled Patient will need anticoagulation given possible CVA in the basilar ganglia. DVT prophylaxis with SCDs Advanced directive: Full code.
[2024-06-30] MEDS: ATORVASTATIN 40 MG TAB PO SCH (20:51)
[2024-07-01 06:08] LABS: Absolute Basophils 0.1 K/uL (0-0.5); Absolute Eosinophils 0.2 K/uL (0-0.5); Absolute Monocytes 1.1 K/uL (0.1-1.3); Absolute Neutrophil 3.9 K/uL (1.8-8.0); Basophils % 0.9 % (0-1.3); Eosinophils % 3.1 % (0-4.4); Hemoglobin 9.5 g/dL (12.0-15.0); Lymphocytes % 16.2 % (15.3-44.8); MCH 34.2 pg (27.0-35.0); MCHC 33.9 g/dL (32.0-36.0); MCV 100.8 fL (80-100); Monocytes % 16.8 % (3.3-12.3); Nucleated Red Blood Cells % 0.5 % (0-0); Platelets 87 thou/uL (152-406); RBC Red Blood Cell Count 2.78 M/uL (3.86-4.86); Red Cell Distribution Width 25.4 % (12.1-15.2)
[2024-07-01 06:43] LABS: Anion Gap 9.4 mEq/L (5.0-15.0)
[2024-07-01 06:46] LABS: Potassium 3.4 mEq/L (3.5-5.1)
[2024-07-01 07:54] LABS: White Blood Cell Scan OK (OK)
[2024-07-01 07:55] LABS: Anisocytosis 3+; Blood Morphology Comment NOTED (NOT SEEN); Macrocytosis 2+; Platelet Estimate DECR
[2024-07-01] MEDS: CLOPIDOGREL 75 MG TABLET PO SCH (08:56)
[2024-07-01] MEDS: ASPIRIN EC 81 MG TAB PO SCH (08:56)
--- NOTE | 2024-07-01 12:42 | P.PN ---
Subjective Date of Service: 07/01/24 Chief Complaint: Acute metabolic encephalopathy Patient appeared lethargic however she is oriented x 2. Blood pressure improved, Levophed drip weaned off earlier this morning. No recorded fever. Physical Examination - Vital Signs Temperature: 97.5 F Blood Pressure: 139/52 Pulse: 68 Respirations: 20 Pulse Ox (%): 99 Assessment And Plan - Plan Physical examination General: Alert and oriented x 2, NAD, HEENT: Anicteric sclera Neck: Supple, no elevated JVD Heart: Heart sounds 1 and 2 normal, regular rhythm, normal rate, no pedal edema Lungs: Clear to auscultation bilaterally, adequate breath sounds bilaterally, no rhonchi or crackles. Abdomen: Soft, nondistended, nontender, normal bowel sounds. Extremities: No tenderness, no deformity Skin: Normal skin turgor, no rash, no nodules or ulcers, left chest dialysis catheter site is clean with no discharge. Neuro: No focal motor deficit. Normal speech. Psychiatry: Normal mood, no agitation. Diagnosis Acute metabolic encephalopathy Cerebral infarction CHF ESRD Diabetes melitis Hypertension Atrial fibrillation Thrombocytopenia Hypokalemia Acute metabolic encephalopathy Altered mental status significantly improved. CT head showing basal ganglia infarct-undetermined age. Continue aspirin Check lipid profile PT OT consult Patient with end-stage renal disease on hemodialysis and low BP No response identified bacteremia given altered mental status. IV NS 1 L in the ED. patient's chest x-ray so additionally mild pulm edema and bilateral pleural effusions. Started on Levophed drip in the ED and transferred to the ICU Follow blood cultures. Obtain procalcitonin End-stage renal disease on hemodialysis Dr. Riggs input appreciated. Hemodialysis per nephrology. Chronic atrial fibrillation Hypertension Atrial fibrillation is rate controlled. Hold metoprolol Patient is not on anticoagulation. Diabetes mellitus type 2 Blood sugar readings within normal range. Monitor. 06/29 MRI of the brain not done because patient has a pacemaker. CT head result concerning for basal ganglia CVA. Neurology consult Neurochecks Blood cultures have yielded no growth-infection/bacteremia is unlikely Patient has a history of soft blood pressure and on midodrine at home. Resume midodrine. Continue to hold metoprolol PT. Nephrology is following for routine hemodialysis. 06/30 Patient remained on Levophed drip at the low-dose. Blood pressure improved but soft. Nephrology is following Patient planned for hemodialysis today Intermittent albumin infusion for low BP Wean Levophed as tolerated Blood cultures have yielded no growth Aspirin and Plavix Continue midodrine. Metoprolol is on hold. A-fib is rate controlled Patient will need anticoagulation given possible CVA in the basilar ganglia. 07/01 Patient tolerated hemodialysis yesterday. Blood pressure has improved, patient weaned off Levophed. Blood cultures: No growth Patient is on antibiotics Continue midodrine Hold aspirin and Plavix given thrombocytopenia Patient has atrial fibrillation and not anticoagulated. High risk of bleeding from thrombocytopenia. Neurology consult. DVT prophylaxis with SCDs Advanced directive: Full code.
--- NOTE | 2024-07-01 12:46 | P.PN ---
Nephrology (S) Remains in the ICU, dialyzed yesterday without incident, off Levophed since this AM, remains lethargic but awake, responds briefly but has some confusion and does not appear at baseline, shows generalized weakness, low intake, not using UE to hold spoon/nephro shake. (O) Vitals reviewed in the EMR General: Elderly, pale, NAD HEENT: Atraumatic, sclera anicteric, on LFNC Neck: Supple, Lt IJ TDC, exit site c/d Respiratory: Normal air movement, Diminished at bases b/l Cardiovascular: Regular rate/rhythm mostly Gastrointestinal: Soft and benign, Non-distended, NT Musculoskeletal: No contractures, no sig peripheral edema Integumentary: No rashes noted, senile ecchymoses Neurological: Lethargic but awake, responds briefly, mild confusion, not much spont movement of ext, generalized weakness, no tremors or myclonus noted Laboratory & Imaging Data (last 24 hrs) Reviewed in the EMR Conclusions/Impression: Dialysis dependent renal failure, ESRD, transferred to our local [facility] unit in early May -Last OP HD Tues, metab profile with missed HD still acceptable, s/p gentle HD yesterday AM Mild hypokalemia -Will replete with PO KCL Hypotension, unspecified, resolved -No clear infectious focus, BCx neg -Wean off low dose pressor support, pt with widened pulse pressure so will use systolic BP as the target. Did restart Midodrine, will employ Albumin support with HD -No further intravascular vol challenge needed currently Diastolic CHF, chronic. Pleural effusions NOS -Monitor closely, UF as tolerated AMS, unspecified. Possible CVA, possible Lt basal ganglia, unknown duration. -CTA head/neck not too remarkable, management per IM Generalized muscle weakness, abnormality of albumin, othe -PT/OT/nutrition consults
[2024-07-01] MEDS: POTASSIUM 25 MEQ EFFERV TAB PO ONE (13:25)
[2024-07-02 05:24] LABS: Absolute Basophils 0.1 K/uL (0-0.5); Absolute Eosinophils 0.2 K/uL (0-0.5); Absolute Monocytes 1.2 K/uL (0.1-1.3); Absolute Neutrophil 5.2 K/uL (1.8-8.0); Basophils % 0.7 % (0-1.3); Eosinophils % 2.9 % (0-4.4); Hematocrit 29.6 % (36.0-45.0); Hemoglobin 9.9 g/dL (12.0-15.0); MCH 33.7 pg (27.0-35.0); MCHC 33.6 g/dL (32.0-36.0); MCV 100.4 fL (80-100); MPV 8.7 fL (7.6-11.3); Monocytes % 15.9 % (3.3-12.3); Neutrophils % 67.5 % (41.7-73.7); Nucleated RBC Absolute Count 0.1 (0-0); Nucleated Red Blood Cells % 0.6 % (0-0); Platelets 92 thou/uL (152-406); RBC Red Blood Cell Count 2.95 M/uL (3.86-4.86)
[2024-07-02 05:27] LABS: Red Cell Distribution Width 25.4 % (12.1-15.2)
[2024-07-02 06:04] LABS: Anion Gap 11.6 mEq/L (5.0-15.0); Potassium 3.6 mEq/L (3.5-5.1)
--- NOTE | 2024-07-02 10:42 | P.PN ---
Subjective Date of Service: 07/02/24 Chief Complaint: Acute metabolic encephalopathy Patient remains lethargic with low speech volume. Patient needed Levophed again last night, weaned off this morning. Status post hemodialysis 06/30 No recorded fever. Patient has poor oral intake. Physical Examination - Vital Signs Temperature: 97.1 F Blood Pressure: 124/52 Pulse: 67 Respirations: 13 Pulse Ox (%): 98 Assessment And Plan - Plan Physical examination General: Alert and oriented x 2, NAD, HEENT: Anicteric sclera Neck: Supple, no elevated JVD Heart: Heart sounds 1 and 2 normal, regular rhythm, normal rate, trace bilateral lower extremity edema. Lungs: Clear to auscultation bilaterally, adequate breath sounds bilaterally, no rhonchi or crackles. Abdomen: Soft, nondistended, nontender, normal bowel sounds. Extremities: No tenderness, no deformity Skin: Normal skin turgor, no rash, no nodules or ulcers, left chest dialysis catheter site is clean with no discharge. Neuro: No focal motor deficit. Normal speech. Psychiatry: Psychomotor retardation, no agitation. Diagnosis Acute metabolic encephalopathy Cerebral infarction CHF ESRD Diabetes melitis Hypertension Atrial fibrillation Thrombocytopenia Hypokalemia Acute metabolic encephalopathy Altered mental status significantly improved. CT head showing basal ganglia infarct-undetermined age. On aspirin PT OT consulted Patient with end-stage renal disease on hemodialysis. IV NS 1 L in the ED. patient's chest x-ray so additionally mild pulm edema and bilateral pleural effusions. Started on Levophed drip in the ED and transferred to the ICU. She has been on Levophed intermittently. Blood cultures: No growth. End-stage renal disease on hemodialysis Dr. Riggs input appreciated. Hemodialysis per nephrology. Chronic atrial fibrillation Hypertension Atrial fibrillation is rate controlled. Metoprolol has been on hold. Patient is not on anticoagulation. Diabetes mellitus type 2 Blood sugar readings within normal range. Monitor. 06/29 MRI of the brain not done because patient has a pacemaker. CT head result concerning for basal ganglia CVA. Neurology consult Neurochecks Blood cultures have yielded no growth-infection/bacteremia is unlikely Patient has a history of soft blood pressure and on midodrine at home. Resume midodrine. Continue to hold metoprolol PT. Nephrology is following for routine hemodialysis. 06/30 Patient remained on Levophed drip at the low-dose. Blood pressure improved but soft. Nephrology is following Patient planned for hemodialysis today Intermittent albumin infusion for low BP Wean Levophed as tolerated Blood cultures have yielded no growth Aspirin and Plavix Continue midodrine. Metoprolol is on hold. A-fib is rate controlled Patient will need anticoagulation given possible CVA in the basilar ganglia. 07/01 Patient tolerated hemodialysis yesterday. Blood pressure has improved, patient weaned off Levophed. Blood cultures: No growth Patient is on antibiotics Continue midodrine Hold aspirin and Plavix given thrombocytopenia Patient has atrial fibrillation and not anticoagulated. High risk of bleeding from thrombocytopenia. Neurology consult. 07/02 Patient remains lethargic She has required Levophed intermittently for low BP Blood cultures: No growth Aspirin and Plavix on hold given worsening thrombocytopenia. CT head on admission showed left basal ganglia lacunar infarct. Neurology consulted. Case discussed with neurology Dr. Jeter given patient persistent lethargy Dr. Jeter recommended EEG Awaiting PT evaluation Encourage oral intake. Hemodialysis per nephrology DVT prophylaxis with SCDs Advanced directive: Full code.
[2024-07-02] MEDS: LACTULOSE 20 GM/30 ML UCUP PO SCH (21:50)
--- NOTE | 2024-07-02 22:01 | P.PN ---
Date of Service: 07/02/24 Vital Signs Temp Pulse Resp BP Pulse Ox 97.4 F 62 15 119/45 L 98 07/02/24 20:00 07/02/24 21:00 07/02/24 21:00 07/02/24 21:00 07/02/24 21:00 Medications Hydrocodone Bitart/Acetaminophen (Hydrocodone/Apap 5/325 Mg Tab) 1 tab PO Q6H PRN PRN Reason: Pain scale 5-7 (Moderate) Last Admin: 07/02/24 20:40 Dose: 1 tab Aspirin (Aspirin Ec 81 Mg Tab) 81 mg PO DAILY NATHALIE Last Admin: 07/02/24 07:33 Dose: 81 mg Atorvastatin Calcium (Atorvastatin 40 Mg Tab) 40 mg PO BEDTIME NATHALIE Last Admin: 07/02/24 20:39 Dose: 40 mg Clopidogrel Bisulfate (Clopidogrel 75 Mg Tablet) 75 mg PO DAILY NATHALIE Last Admin: 07/02/24 07:33 Dose: 75 mg Enteral Nutritional Formula (Nepro Shake 237 Ml Can) 240 ml PO BID NATHALIE Last Admin: 07/02/24 21:00 Dose: 240 ml Heparin Sodium (Porcine) (Heparin 1,000 Unit/Ml Vial) 2,000 unit IV EVERY HD PRN PRN Reason: Prevent HD System Clotting Last Admin: 06/30/24 12:58 Dose: 2,000 unit Heparin Sodium (Porcine) (Heparin 1,000 Unit/Ml Vial) 6,000 unit IV EVERY HD PRN PRN Reason: FOR DIALYSIS CATHETER CARE Last Admin: 06/30/24 16:04 Dose: 6,000 unit Ceftriaxone Sodium 1,000 mg/ (Sodium Chloride) 50 mls @ 100 mls/hr IVPB DAILY NATHALIE; Protocol Last Admin: 07/02/24 07:34 Dose: 50 mls Vancomycin HCl 500 mg/ Sodium (Chloride) 250 mls @ 250 mls/hr IVPB AFTER EACH DIALYSIS NATHALIE; Protocol Norepinephrine/Dextrose (Levophed 4 Mg/250 Ml-D5w) 4 mg in 250 mls @ 23.814 mls/hr IV TITR NATHALIE; Protocol Lactulose (Lactulose 20 Gm/30 Ml Ucup) 20 gm PO BID NATHAILE Midodrine (Midodrine Hcl 5 Mg Tablet) 5 mg PO TID NATHALIE Last Admin: 07/02/24 20:39 Dose: 5 mg Ondansetron HCl (Ondansetron 4 Mg/2 Ml Vial) 4 mg IV Q6HP PRN PRN Reason: NAUSEA / VOMITING Lab Results (last 24 hrs) 06/28/24 01:40: Urine Color Cancelled, Urine Clarity Cancelled, Urine pH Cancelled, Ur Specific [place] Cancelled, Glucose (UA)(Auto) Cancelled, Urine Ketones Cancelled, Urine Blood Cancelled, Urine Nitrite Cancelled, Urine Bilirubin Cancelled, Urine Urobilinogen Cancelled, Ur Leukocyte Esterase Cancelled, Urine RBC Cancelled, Urine Red Cell Clumps Cancelled, Urine WBC Cancelled, Urine WBC Clumps Cancelled, Ur Squamous Epith Cells Cancelled, U Non- Squamous Epi Cells Cancelled, Ur Transition Epith Cell Cancelled, Ur Renal E pithelial Cell Cancelled, Calcium Carbonate Cryst Cancelled, Calcium Oxalate Crystal Cancelled, Leucine Crystals Cancelled, Cystine Crystals Cancelled, Uric Acid Crystals Cancelled, Triple Phos Crystals Cancelled, Tyrosine Crystals Cancelled, Unidentified Crystals Cancelled, Amorphous Crystals Cancelled, Urine Bacteria Cancelled, Hyaline Casts Cancelled, Granular Casts Cancelled, Waxy Casts Cancelled, RBC Casts Cancelled, WBC Casts Cancelled, Urine Mucus Cancelled, Urine Trichomonas Cancelled, Ur Yeast w Hyphae Cancelled, Urine Yeast (Budding) Cancelled, Urine Sperm Cancelled, Ur Oval Fat Bodies Cancelled, Ur Microscopic Review Cancelled, Urine Culture Reflexed Cancelled, Urine Total Protein Cancelled, Urine Ascorbic Acid Cancelled, Urine Fat Cancelled Microbiology Results 06/28/24 03:40 Blood - Blood Aerobic Blood Culture - Preliminary No growth in 24 hours. 06/28/24 03:40 Blood - Blood Anaerobic Blood Culture - Preliminary No growth in 24 hours. 06/28/24 03:50 Blood - Blood Aerobic Blood Culture - Preliminary No growth in 24 hours. 06/28/24 03:50 Blood - Blood Anaerobic Blood Culture - Preliminary No growth in 24 hours. Assessment/ Plan: Nephrology No dyspnea No chest pain Persistent back pain No acute events overnight Vitals, medications, blood work and imaging reviewed in the chart General: Cooperative, Mild distress HEENT: Atraumatic Neck: Supple Respiratory: Normal air movement, Diminished Cardiovascular: Regular rate/rhythm, Edema (Hip) Gastrointestinal: Soft and benign, Non-distended, Tenderness Musculoskeletal: No clubbing, No contractures Integumentary: No rashes Neurological: Normal speech Laboratory Data (last 24 hrs) 06/27/24 06/27/24 06/27/24 20:44 20:44 20:44 WBC 5.10 Hgb 11.2 L Hct 32.8 L Plt Count 123 L PT 11.2 INR 0.98 APTT 36.7 Sodium 137 Potassium 3.1 L BUN 16 Creatinine 2.57 H Glucose 137 H Magnesium 2.3 Total Bilirubin 0.5 AST 26 ALT 22 Alkaline Phosphatase 154 H Imagings Data: Procedure: Chest Single View HISTORY: Cough COMPARISON: none FINDINGS: Moderate right and ubfuw-mr-gozibhdt left pleural effusions Mild bilateral pulmonary opacities probably pulmonary edema Cardiomegaly Pacemaker leads in place. Central venous catheter with one limb in the SVC and the other the right atrium. EXAMINATION: CT ABDOMEN AND PELVIS WITHOUT CONTRAST CLINICAL INDICATION: Abdominal pain TECHNIQUE: CT abdomen and pelvis was performed, as per department protocol. IV contrast and oral was not administered.Axial, sagittal and coronal reconstructions were obtained. One or more of the following dose reduction techniques were used: Automated exposure control, adjustment of the mA and/or kV according to the patient size, and/or iterative reconstruction. Unless otherwise specified, incidental findings do not require dedicated imaging follow-up. [id number]. COMPARISON: May 2024. FINDINGS: The lack of intravenous and oral contrast limits evaluation of solid organs, vessels and bowel. Moderate right and tlhbd-bs-rpedpftv left pleural effusions. Bibasilar atelectasis Pvwcx-ve-vcgyvcmx hiatal hernia.. Pancreatic atrophy is present. Cholecystectomy or graph The liver, spleen, , adrenals and kidneys appear grossly normal Diverticula stem from colon without evidence of diverticulitis. Hysterectomy. No adnexal mass. Compression fractures involve T8, T9, T11, L1 and L2 vertebral bodies. They're unchanged from prior exam. The T11 vertebral compression fracture is moderate to marked. IMPRESSION: Multiple compression fractures involving thoracic and lumbar vertebral bodies. They're unchanged from the prior exam. I suspect they are combination of subacute and chronic. Moderate right and qpppw-nc-hfzdxssv left pleural effusions Conclusions/Impression: ESRD on HD -No NSAIDs -Next HD tomorrow Hypokalemia -Replete as ordered Acute on Chronic Hypotension -Continue Midodrine Diastolic CHF, chronic -Daily weight DM II -RISS prn Hypoalbuminemia -Albumin IV as ordered Acute Metabolic Encephalopathy -Continue supportive care Hospitalist note reviewed Patient care 35min
--- NOTE | 2024-07-03 00:42 | CON ---
Reason For Consultation: Consultation called because of altered mental status. History Of Present Illness: Ms. Avitia is an 84-year-old patient with end-stage renal disease, on he modialysis Tuesday, , Tuesday; congestive heart failure; diabetes mellitus; atrial fibrillat kailash, who has reported baseline cognitive impairment and resides in a shelter, was brought in due to worsening confusion. The patient was admitted on June 27. She had a CT scan of the head and C TA of head and neck, which did not show any significant abnormalities. She did have moderate cerebra l volume loss. Blood work did not show abnormal white blood cell count throughout. She had essentia lly unremarkable hemoglobin and hematocrit. Her electrolytes are consistent with her renal disease. She had mild hyponatremia, mild hypoalbuminemia, and mildly elevated B12. Urinalysis was actually p ending. Hepatitis B surface antibody positive. An EEG is done today. However, the study is waiting to be evaluated and read. At the time of my evaluation, she was having EEG done. She is easily ca usable, followed all commands appropriately. Moved arms and legs equally well. Her legs also, she w as able to bend the knee equally. She had symmetric face appearing. It is noted on the CT scan of t he head, there was a chronic appearing left basal ganglia lacunar infarct, noted to be more age indet erminate suggesting MRI may be helpful. The patient on my evaluation did not have any significant ri ght upper extremity weakness more than the left side. Past Medical History: As noted above. Allergies: DIGOXIN, EPINEPHRINE, NITROFURANTOIN, SULFA DRUGS. Current Medications: Aspirin 81 mg daily, Lipitor 40 mg at bedtime. She is on Rocephin 1 g daily, P lavix 75 mg daily, Nepro shake 240 mL twice daily, heparin 6000 units every hemodialysis, [place]idge 7.5/3 25 every 6 hours as needed, Zofran 4 mg every 6 hours as needed, vancomycin 500 mg each hemodialysis. Family History: Noncontributory. Social History: Again, resides in local skilled nursing. No tobacco, alcohol, or IV drug use. Review of Systems: Not highly reliable at this point, but the patient did have some disorientation confusion, but appare ntly is more appropriate at this point. Physical Examination: Vital Signs: Blood pressure is 118/51, pulse 63, respiratory rate 18, temperature 97.1, oxygen satur ation 97%. Weight 140 pounds, height 5 feet 2 inches, BMI 25.6. General: Ms. Avitia is lying in the ICU, getting EEG done. HEENT: She appears normocephalic, atraumatic. Sclerae anicteric. She has good air movement. Abdomen: Soft. Extremities: Show no significant clubbing, cyanosis, or edema. Some bruising noted in the upper ext remities. Neurologic: She did follow all commands appropriately. Cranial nerves do not show any obvious focal deficits. On motor examination, mild diffuse weakness of lower extremities. She did not have focal weakness in the upper and lower extremities. Sensation, stocking-glove loss, light touch temperatur e, depressed reflexes. Assessment: Ms. Avitia is an 84-year-old patient with likely more chronic appearing stroke in her le ft basal ganglia with no obvious new right-sided weakness noted. She has end-stage renal disease, on hemodialysis. However, laboratory studies are not significantly elevated to explain her condition. She did have ammonia level drawn, but smears have been canceled at this point. She is on vancomycin and Rocephin for likely presumed systemic infection. Her procalcitonin is normal at 0.09 and lactic acid on the 3rd is elevated to 2.4 and her beta natriuretic peptide elevated at 14,274. The patient 's condition is not clear that she has any significant lasting issues affecting cognitive functioning , but likely intercurrent illness worsening her baseline cognitive functioning. Plan: We will follow up with routine EEG. Continue supportive care, hydration, antibiotics as per p jeremiahary team. Continue with dialysis as per team and other comorbid conditions, which are outlined and continue current medications. LB/MODL Voice ID: [id number] Report ID: [id number]
[2024-07-03 05:34] LABS: Absolute Basophils 0.1 K/uL (0-0.5); Absolute Eosinophils 0.2 K/uL (0-0.5); Absolute Lymphocytes (CBC) 0.7 K/uL (0.7-4.9); Absolute Monocytes 0.7 K/uL (0.1-1.3); Absolute Neutrophil 5.1 K/uL (1.8-8.0); Basophils % 0.9 % (0-1.3); Eosinophils % 3.1 % (0-4.4); Hemoglobin 9.9 g/dL (12.0-15.0); Lymphocytes % 10.3 % (15.3-44.8); MCH 34.2 pg (27.0-35.0); MCHC 34.1 g/dL (32.0-36.0); MCV 100.2 fL (80-100); MPV 8.4 fL (7.6-11.3); Monocytes % 10.3 % (3.3-12.3); Neutrophils % 75.4 % (41.7-73.7); Nucleated Red Blood Cells % 0.5 % (0-0); Platelets 114 thou/uL (152-406); RBC Red Blood Cell Count 2.89 M/uL (3.86-4.86)
[2024-07-03 05:36] LABS: Red Cell Distribution Width 25.7 % (12.1-15.2)
[2024-07-03 05:48] LABS: Anion Gap 10.7 mEq/L (5.0-15.0); Magnesium 2.6 mg/dL (1.6-2.4); Potassium 3.7 mEq/L (3.5-5.1)
--- NOTE | 2024-07-03 07:18 | P.PN ---
Date of Service: 07/03/24 Subjective: patient remains awake/alert states she feels tired no acute events overnight nursing staff report patient has been voicing nnot wanting to continue with treatment, and wanting comfort measures afebrile Physical Exam: GEN: awake, oriented x2 CV: Regular rate and rhythm, trace BLE edema Pulm: Nonlabored respirations on 2L NC, clear bilaterally ABD: soft, nontender, nondistended Integumentary: Left chest dialysis catheter site is clean, no discharge. Neuro: full exam limited by mentation/sleepy Problem List: Acute metabolic encephalopathy Basal Ganglia Infarct, chronic vs subacute ESRD on HD TTS Chronic diastolic CHF Acute on chronic Hypotension Chronic atrial fibrillation Thrombocytopenia NIDDM2 Hypokalemia, improved Acute metabolic encephalopathy Basal Ganglia Infarct, chronic vs subacute CT head (06/27): Left basal ganglia infarct. Age indeterminate. +Complete opacification left mastoids may indicate mastoiditis CT abdomen (06/27): Moderate right and small-mod left pleural effusion. Combination of subacute and chronic compression fractures involving thoracic/lumbar vertebral bodies. 06/28 - Started on Levophed drip in the ED and transferred to the ICU. Started on empiric Rocephin/Vanc (06/28-) Blood cultures were without growth s/p albumin infusion 06/30 - Intermittently requiring levophed. BP soft but improving 07/01 - Weaned off levophed. BP improved. Aspirin/Plavix held given worsening Thrombocytopenia Continue home midodrine Neurology consulted - suspect more chronic appearing stroke in left basal ganglia, no obvious new right-sided weakness. Unable to obtain MRI brain due to presence of pacemaker. PT/OT consult 07/02 - Patient continues with persistent lethargy. Dr. Jeter recommended EEG - results pending Lactulose added given mildly elevated ammonia level: 58 Aspirin/Plavix resumed. 07/03 -Confirmed patient is DNR. Son, Sam, at bedside and states he is MPOA and patient has signed DNR at facility where she came from. Patient/family to discuss possible hospice HD planned for today ESRD on HD TTS Chronic diastolic CHF Acute on chronic Hypotension Nephrology consulted HD per nephrology continue home midodrine TID Chronic atrial fibrillation Thrombocytopenia Atrial fibrillation is rate controlled. Not on anticoagulation. High risk of bleeding from thrombocytopenia. 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
[2024-07-03] MEDS: NA CHLORIDE 0.9% 50 ML ONE (08:04)
[2024-07-03] MEDS ORDERED: VANCOMYCIN 500 MG in NA CHLORIDE 0.9% 100 ML IVPB SCH (11:30)
--- NOTE | 2024-07-03 20:53 | P.PN ---
Date of Service: 07/03/24 Vital Signs Temp Pulse Resp BP Pulse Ox 97 F 66 19 110/44 L 98 07/03/24 04:00 07/03/24 19:00 07/03/24 19:00 07/03/24 19:00 07/03/24 19:00 Medications Hydrocodone Bitart/Acetaminophen (Hydrocodone/Apap 5/325 Mg Tab) 1 tab PO Q6H PRN PRN Reason: Pain scale 5-7 (Moderate) Last Admin: 07/02/24 20:40 Dose: 1 tab Aspirin (Aspirin Ec 81 Mg Tab) 81 mg PO DAILY [facility] Last Admin: 07/03/24 08:17 Dose: 81 mg Atorvastatin Calcium (Atorvastatin 40 Mg Tab) 40 mg PO BEDTIME [facility] Last Admin: 07/03/24 19:44 Dose: 40 mg Clopidogrel Bisulfate (Clopidogrel 75 Mg Tablet) 75 mg PO DAILY [facility] Last Admin: 07/03/24 08:18 Dose: 75 mg Enteral Nutritional Formula (Nepro Shake 237 Ml Can) 240 ml PO BID [facility] Last Admin: 07/03/24 19:44 Dose: 240 ml Heparin Sodium (Porcine) (Heparin 1,000 Unit/Ml Vial) 2,000 unit IV EVERY HD PRN PRN Reason: Prevent HD System Clotting Last Admin: 07/03/24 15:30 Dose: 2,000 unit Heparin Sodium (Porcine) (Heparin 1,000 Unit/Ml Vial) 6,000 unit IV EVERY HD PRN PRN Reason: FOR DIALYSIS CATHETER CARE Last Admin: 06/30/24 16:04 Dose: 6,000 unit Ceftriaxone Sodium 1,000 mg/ (Sodium Chloride) 50 mls @ 100 mls/hr IVPB DAILY NATHALIE; Protocol Last Admin: 07/03/24 08:17 Dose: 50 mls Norepinephrine/Dextrose (Levophed 4 Mg/250 Ml-D5w) 4 mg in 250 mls @ 23.814 mls/hr IV TITR NATHALIE; Protocol Vancomycin HCl 500 mg/ Sodium (Chloride) 100 mls @ 100 mls/hr IVPB AFTER EACH DIALYSIS [facility] Lactulose (Lactulose 20 Gm/30 Ml Ucup) 20 gm PO BID [facility] Last Admin: 07/03/24 19:44 Dose: 20 gm Midodrine (Midodrine Hcl 5 Mg Tablet) 5 mg PO TID NATHALIE Last Admin: 07/03/24 19:44 Dose: 5 mg Ondansetron HCl (Ondansetron 4 Mg/2 Ml Vial) 4 mg IV Q6HP PRN PRN Reason: NAUSEA / VOMITING Microbiology Results 06/28/24 03:40 Blood - Blood Aerobic Blood Culture - Final No growth in 5 days. 06/28/24 03:40 Blood - Blood Anaerobic Blood Culture - Final No growth in 5 days. 06/28/24 03:50 Blood - Blood Aerobic Blood Culture - Final No growth in 5 days. 06/28/24 03:50 Blood - Blood Anaerobic Blood Culture - Final No growth in 5 days. Assessment/ Plan: Nephrology No dyspnea No chest pain Fatigue and weakness No acute events overnight Vitals, medications, blood work and imaging reviewed in the chart General: Cooperative, Mild distress HEENT: Atraumatic Neck: Supple Respiratory: Normal air movement, Diminished Cardiovascular: Regular rate/rhythm, Edema (Hip) Gastrointestinal: Soft and benign, Non-distended, Tenderness Musculoskeletal: No clubbing, No contractures Integumentary: No rashes Neurological: Normal speech Laboratory Data (last 24 hrs) 06/27/24 06/27/24 06/27/24 20:44 20:44 20:44 WBC 5.10 Hgb 11.2 L Hct 32.8 L Plt Count 123 L PT 11.2 INR 0.98 APTT 36.7 Sodium 137 Potassium 3.1 L BUN 16 Creatinine 2.57 H Glucose 137 H Magnesium 2.3 Total Bilirubin 0.5 AST 26 ALT 22 Alkaline Phosphatase 154 H Imagings Data: Procedure: Chest Single View HISTORY: Cough COMPARISON: none FINDINGS: Moderate right and ygmmf-uy-nlsffwos left pleural effusions Mild bilateral pulmonary opacities probably pulmonary edema Cardiomegaly Pacemaker leads in place. Central venous catheter with one limb in the SVC and the other the right atrium. EXAMINATION: CT ABDOMEN AND PELVIS WITHOUT CONTRAST CLINICAL INDICATION: Abdominal pain TECHNIQUE: CT abdomen and pelvis was performed, as per department protocol. IV contrast and oral was not administered.Axial, sagittal and coronal reconstructions were obtained. One or more of the following dose reduction techniques were used: Automated exposure control, adjustment of the mA and/or kV according to the patient size, and/or iterative reconstruction. Unless otherwise specified, incidental findings do not require dedicated imaging follow-up. [id number]. COMPARISON: May 2024. FINDINGS: The lack of intravenous and oral contrast limits evaluation of solid organs, vessels and bowel. Moderate right and oecsm-uu-ypepbgik left pleural effusions. Bibasilar atelectasis Fyrpo-pi-kkyrrriz hiatal hernia.. Pancreatic atrophy is present. Cholecystectomy or graph The liver, spleen, , adrenals and kidneys appear grossly normal Diverticula stem from colon without evidence of diverticulitis. Hysterectomy. No adnexal mass. Compression fractures involve T8, T9, T11, L1 and L2 vertebral bodies. They're unchanged from prior exam. The T11 vertebral compression fracture is moderate to marked. IMPRESSION: Multiple compression fractures involving thoracic and lumbar vertebral bodies. They're unchanged from the prior exam. I suspect they are combination of subacute and chronic. Moderate right and uoyqz-eo-euzxbopu left pleural effusions Conclusions/Impression: ESRD on HD -No NSAIDs -HD today Hyponatremia -HD today Hypokalemia -Replete prn Acute on Chronic Hypotension -Continue Midodrine Diastolic CHF, chronic -Daily weight DM II -RISS prn Hypoalbuminemia -Albumin IV as ordered Acute Metabolic Encephalopathy -Continue supportive care Hospitalist note reviewed Patient care 35min
[2024-07-04 03:59] VITALS: BMI 25.4
[2024-07-04 05:44] LABS: Hematocrit 27.9 % (36.0-45.0); Hemoglobin 9.7 g/dL (12.0-15.0); MCH 34.2 pg (27.0-35.0); MCHC 34.6 g/dL (32.0-36.0); MCV 98.7 fL (80-100); MPV 8.4 fL (7.6-11.3); Platelets 112 thou/uL (152-406); RBC Red Blood Cell Count 2.83 M/uL (3.86-4.86); Red Cell Distribution Width 24.9 % (12.1-15.2)
[2024-07-04 09:11] LABS: Albumin 2.7 g/dL (3.4-5.0); Albumin/Globulin Ratio 0.8 (1.1-1.8); Anion Gap 9.7 mEq/L (5.0-15.0); Bilirubin Total 0.6 mg/dL (0.2-1.0); Globulin 3.4 g/dL (2.3-3.5); Magnesium 2.1 mg/dL (1.6-2.4); Potassium 3.7 mEq/L (3.5-5.1); Protein, Total 6.1 g/dL (6.4-8.2)
--- NOTE | 2024-07-04 11:42 | P.DS ---
Admission Date: 06/28/24 Discharge Date: 07/04/24 Disposition: HOSPICE-MEDICAL FACILITY Discharge Condition: FAIR Reason for Admission: Acute metabolic encephalopathy Consultations: Nephrology - Dr. Riggs, Dr. Aleman Neurology - Dr. Jeter Brief History of Present Illness: 84yo F, PMH: ESRD, CHF, diabetes, compression fracture, atrial fibrillation Patient presented with altered mental status from her nursing earlier today. She is arousable and is able to answer questions on my exam. She states her stomach was hurting earlier. She states she felt better after she had 2 laxatives. She denies fevers and chills. In addition she fractured her back several months ago. She denies any acute complaints at this time. Hospital Course: Problem List: Acute metabolic encephalopathy Basal Ganglia Infarct, chronic vs subacute ESRD on HD TTS Chronic diastolic CHF Acute on chronic Hypotension Chronic atrial fibrillation Thrombocytopenia NIDDM2 Hypokalemia, improved Physician discharge instructions: Patient presented with increased confusion. CT head noted left basal ganglia infarct age indeterminate. Unable to obtain MRI due to presence of pacemaker. CT abdomen noted moderate right and small-mod left pleural effusion, also noted multiple subacute and chronic compression fractures involving thoracic/lumbar vertebral bodies. Patient's blood pressure was noted to be low in the ED. She was started on levophed and admitted to ICU. Patient weaned off levophed 07/01 as her blood pressure improved. Dr. Jeter, neurologist was consulted who felt stroke to be more chronic appearing in left basal ganglia, no obvious new right-sided weakness. She underwent EEG on 07/02 - results pending upon discharge. She was started on empiric antibiotics on admission to cover possible infection given the uncertainty and confusion. She remained afebrile without leukoctosis throughout hospitalization with no evidence of ongoing infection. No further antibiotics warranted. Discussed ongoing goals of care with patient and family. Patient's Son, RONEY, confirmed patient's code status was DNR prior to hospitalization. Given patients worsening quality of life and physical deconditioning, patient's family decided to purse hospice comfort measures. Physical Exam: GEN: awake, oriented x2 CV: Regular rate and rhythm, trace BLE edema Pulm: Nonlabored respirations on 2L NC, clear bilaterally ABD: soft, nontender, nondistended Integumentary: Left chest dialysis catheter site is clean, no discharge. Neuro: Moves all extremities, normal speech Vital Signs/Physical Exam: Temp Pulse Resp BP Pulse Ox 97.6 F 68 16 118/42 L 98 07/04/24 07:00 07/04/24 11:00 07/04/24 11:00 07/04/24 11:00 07/04/24 11:00 Laboratory Data at Discharge: WBC 7.00 thou/uL (4.3-10.9) 07/04/24 05:23 Hgb 9.7 g/dL (12.0-15.0) L 07/04/24 05:23 Hct 27.9 % (36.0-45.0) L 07/04/24 05:23 Plt Count 112 thou/uL (152-406) L 07/04/24 05:23 PT 11.2 SECONDS (10-13.0) 06/27/24 20:44 INR 0.98 06/27/24 20:44 APTT 36.7 SECONDS (27.2-37.4) 06/27/24 20:44 Sodium 135 mEq/L (136-145) L 07/04/24 05:23 Potassium 3.7 mEq/L (3.5-5.1) 07/04/24 05:23 BUN 20 mg/dL (7-18) H 07/04/24 05:23 Creatinine 2.83 mg/dL (0.55-1.02) H 07/04/24 05:23 Glucose 75 mg/dL (74-106) 07/04/24 05:23 Uric Acid 3.2 mg/dL (2.6-6.0) 06/29/24 05:23 Phosphorus 5.7 mg/dL (2.5-4.9) H 06/30/24 05:31 Magnesium 2.1 mg/dL (1.6-2.4) 07/04/24 05:23 Total Bilirubin 0.6 mg/dL (0.2-1.0) 07/04/24 05:23 AST 27 U/L (15-37) 07/04/24 05:23 ALT 16 U/L (13-56) 07/04/24 05:23 Alkaline Phosphatase 152 U/L (45-117) H 07/04/24 05:23 Home Medications: Acetaminophen [Pain Relief] 500 mg PO BID PRN 06/28/24 Calcium Carbonate 1,000 mg PO TID 06/28/24 Cyclobenzaprine HCl 5 mg PO BID 06/28/24 Diclofenac Epolamine [Flector] 1 each TD TID 06/28/24 Lactulose [Enulose] 30 ml PO TID 06/28/24 Midodrine HCl 10 mg PO TID 06/28/24 Pravastatin Sodium 40 mg PO BEDTIME 06/28/24 Physician Discharge Instructions: Physician discharge instructions: Patient presented with increased confusion. CT head noted left basal ganglia infarct age indeterminate. Unable to obtain MRI due to presence of pacemaker. CT abdomen noted moderate right and small-mod left pleural effusion, also noted multiple subacute and chronic compression fractures involving thoracic/lumbar vertebral bodies. Patient's blood pressure was noted to be low in the ED. She was started on levophed and admitted to ICU. Patient weaned off levophed 07/01 as her blood pressure improved. Dr. Jeter, neurologist was consulted who felt stroke to be more chronic appearing in left basal ganglia, no obvious new right-sided weakness. She underwent EEG on 07/02 - results pending upon discharge. She was started on empiric antibiotics on admission to cover possible infection given the uncertainty and confusion. She remained afebrile without leukoctosis throughout hospitalization with no evidence of ongoing infection. No further antibiotics warranted. Discussed ongoing goals of care with patient and family. Patient's Son, RONEY, confirmed patient's code status was DNR prior to hospitalization. Given patients worsening quality of life and physical deconditioning, patient's family decided to purse hospice comfort measures. Followup: Tor NUGENT,Evelio Chopra DO [Primary Care Provider] - Time spent managing pt's care (in minutes): 45
[2024-07-04 12:07] VITALS: BP 141/65; TEMP 97.3
[2024-07-04] MEDS: HYDROCODONE/APAP 5/325 MG TAB PO ONE (12:24)
[2024-07-04 14:35] VITALS: O2SAT 98
--- NOTE | 2024-07-04 21:10 | P.PN ---
Date of Service: 07/04/24 Vital Signs Temp Pulse Resp BP Pulse Ox 97.3 F 72 22 H 141/65 H 98 07/04/24 12:00 07/04/24 12:00 07/04/24 12:24 07/04/24 12:00 07/04/24 12:24 Microbiology Results 06/28/24 03:40 Blood - Blood Aerobic Blood Culture - Final No growth in 5 days. 06/28/24 03:40 Blood - Blood Anaerobic Blood Culture - Final No growth in 5 days. 06/28/24 03:50 Blood - Blood Aerobic Blood Culture - Final No growth in 5 days. 06/28/24 03:50 Blood - Blood Anaerobic Blood Culture - Final No growth in 5 days. Assessment/ Plan: Nephrology No dyspnea No chest pain Fatigue and weakness Persistent back pain No acute events overnight She tolerated dialysis yesterday with 1 liter removed Vitals, medications, blood work and imaging reviewed in the chart General: Cooperative, Mild distress HEENT: Atraumatic Neck: Supple Respiratory: Normal air movement, Diminished Cardiovascular: Regular rate/rhythm, Edema (Hip) Gastrointestinal: Soft and benign, Non-distended, Tenderness Musculoskeletal: No clubbing, No contractures Integumentary: No rashes Neurological: Normal speech Laboratory Data (last 24 hrs) 06/27/24 06/27/24 06/27/24 20:44 20:44 20:44 WBC 5.10 Hgb 11.2 L Hct 32.8 L Plt Count 123 L PT 11.2 INR 0.98 APTT 36.7 Sodium 137 Potassium 3.1 L BUN 16 Creatinine 2.57 H Glucose 137 H Magnesium 2.3 Total Bilirubin 0.5 AST 26 ALT 22 Alkaline Phosphatase 154 H Imagings Data: Procedure: Chest Single View HISTORY: Cough COMPARISON: none FINDINGS: Moderate right and eszmy-[id number] left pleural effusions Mild bilateral pulmonary opacities probably pulmonary edema Cardiomegaly Pacemaker leads in place. Central venous catheter with one limb in the SVC and the other the right atrium. EXAMINATION: CT ABDOMEN AND PELVIS WITHOUT CONTRAST CLINICAL INDICATION: Abdominal pain TECHNIQUE: CT abdomen and pelvis was performed, as per department protocol. IV contrast and oral was not administered.Axial, sagittal and coronal reconstructions were obtained. One or more of the following dose reduction techniques were used: Automated exposure control, adjustment of the mA and/or kV according to the patient size, and/or iterative reconstruction. Unless otherwise specified, incidental findings do not require dedicated imaging follow-up. [id number]. COMPARISON: May 2024. FINDINGS: The lack of intravenous and oral contrast limits evaluation of solid organs, vessels and bowel. Moderate right and yondi-bq-zfruthje left pleural effusions. Bibasilar atelectasis Brvwa-gi-ykomnhko hiatal hernia.. Pancreatic atrophy is present. Cholecystectomy or graph The liver, spleen, , adrenals and kidneys appear grossly normal Diverticula stem from colon without evidence of diverticulitis. Hysterectomy. No adnexal mass. Compression fractures involve T8, T9, T11, L1 and L2 vertebral bodies. They're unchanged from prior exam. The T11 vertebral compression fracture is moderate to marked. IMPRESSION: Multiple compression fractures involving thoracic and lumbar vertebral bodies. They're unchanged from the prior exam. I suspect they are combination of subacute and chronic. Moderate right and tmwnc-ys-hlt[place]au[place] left pleural effusions Conclusions/Impression: ESRD on HD -No NSAIDs -HD TIW Hyponatremia -HD TIW Hypokalemia -Replete prn Acute on Chronic Hypotension -Continue Midodrine Diastolic CHF, chronic -Daily weight DM II -RISS prn Hypoalbuminemia -Albumin IV prn -Encourage nutrition Acute Metabolic Encephalopathy -Continue supportive care Hospitalist note reviewed Case discussed with Dr. Castañeda; possible hospice due to poor prognosis Patient care 35min
--- NOTE | 2024-07-05 08:46 | EEG ---
CHART: [id number] TEST ID#: [id number] DATE OF STUDY: 07/02/2024 THE EEG WAS RECORDED PORTABLE IN THE ICU ON A 17 CHANNEL MACHINE. ELECTRODES WERE APPLIED IN THE USUAL MANNER USING THE INTERNATIONAL 10-20 SYSTEM. THE WAKING BACKGROUND RHYTHM IN THIS RECORD CONSISTS OF FAIRLY WELL DEVELOPED AND FAILY WELL ORGANIZED WAVES OF 6 HZ., MAXIMAL IN THE POSTERIOR HEAD REGIONS WHICH ATTENUATE NORMALLY WITH EYE OPENING. MODERATE VOLTAGE 1.5-3 HZ ACTIVITY IS EXPRESSED IN THE FRONTAL, CENTRAL AND PARIENTAL REGIONS. THERE ARE NO FOCAL OR LATERALIZING FEATURES. NO EPILEPTIFORM ACTIVITY APPEARS. SLEEP DID NOT OCCUR. HYPERVENTILATION WAS NOT PERFORMED. PHOTIC STIMULATION PRODUCED NO DRIVING BILATERALLY. IMPRESSION: THIS IS A MODERATELY ABNORMAL AWAKE EEG DUE TO A MODERATLY SLOW BACKGOUND. THERE IS MORE FRONTAL SLOW ACTIVITY IN THE LEFT PARIETAL REGION. THIS FINDING INDICATES THE PRESENCE OF A MODERATE NON-SPECIFIC DIFFUSE DISTURBANCE IN CEREBRAL ACTIVITY WITH A POSSIBLE FOCAL LESION IN THE LEFT PARIETAL REGION.
== END 2024-07-04 12:50 | disposition hospice, inpatient (51) | DRG 70 ==
LOC: ER 20:17 → ERHOLD 06-28 01:40 → 3RD-ICU 06-28 12:47 → OBSVTOIN 06-28 15:37
PROVIDERS: ADMIT Family Medicine; ATTEND Hospitalist
PROC: 3E033XZ Introduction of Vasopressor into Peripheral Vein, Percutaneous Approach (ICD-10-PCS; principal; 2024-06-28)
PROC: 5A1D70Z Performance of Urinary Filtration, Intermittent, Less than 6 Hours Per Day (ICD-10-PCS; 2024-06-28)
PROC: 02HV33Z Insertion of Infusion Device into Superior Vena Cava, Percutaneous Approach (ICD-10-PCS; 2024-06-28)
DX: G93.41 Metabolic encephalopathy (principal); N18.6 End stage renal disease; R57.1 Hypovolemic shock; I13.2 Hypertensive heart and chronic kidney disease with heart failure and with stage 5 chronic kidney disease, or end stage renal disease; I50.32 Chronic diastolic (congestive) heart failure; I48.20 Chronic atrial fibrillation, unspecified; E87.1 Hypo-osmolality and hyponatremia; E11.22 Type 2 diabetes mellitus with diabetic chronic kidney disease; E87.6 Hypokalemia; I95.89 Other hypotension; D69.6 Thrombocytopenia, unspecified; E88.09 Other disorders of plasma-protein metabolism, not elsewhere classified; M48.56XD Collapsed vertebra, not elsewhere classified, lumbar region, subsequent encounter for fracture with routine healing; M48.54XD Collapsed vertebra, not elsewhere classified, thoracic region, subsequent encounter for fracture with routine healing; R53.1 Weakness; R29.700 NIHSS score 0; Z66 Do not resuscitate; Z51.5 Encounter for palliative care; Z99.2 Dependence on renal dialysis; Z88.2 Allergy status to sulfonamides; Z95.0 Presence of cardiac pacemaker; Z88.8 Allergy status to other drugs, medicaments and biological substances; Z79.84 Long term (current) use of oral hypoglycemic drugs; Z86.73 Personal history of transient ischemic attack (TIA), and cerebral infarction without residual deficits; Z79.899 Other long term (current) drug therapy; Z91.158 Patient's noncompliance with renal dialysis for other reason
CPT/HCPCS: 36415; 70450; 70496; 70498; 71045; 74176; 80048; 80053; 80076; 80202; 82024; 82040; 82140; 82533; 82607; 82947; 83605; 83735; 83880; 84100; 84145; 84443; 84484; 84550; 85025; 85027; 85610; 85730; 86704; 86706; 87040; 87340; 90935; 93005; 94760; 95816; 99285; G0378; J0696; J1644; J3370; J7030; J7040; P9047; Q9967